=== PATIENT | female | born 1940 | race Caucasian/White ===

== ENCOUNTER 2022-10-27 21:55 | Inpatient (IN) ==
[2022-10-27] MEDS ORDERED: Patient's HEIGHT &/or WEIGHT Needed STA (22:06)
[2022-10-27] MEDS ORDERED: Patient's ALLERGY Info needs ENTERED STA (22:06)
[2022-10-27] MEDS ORDERED: OPTIRAY 320 500ml IV ONE (22:06)
[2022-10-27] MEDS ORDERED: STAT IV STA (22:21)
[2022-10-27] MEDS ORDERED: SODIUM CHLORIDE 0.9% 10ML FLUSH IV STA (22:21)
--- NOTE | 2022-10-27 22:22 | CT Scan Report ---
CT angio head w con, CT head/brain wo con, CT angio neck with con CLINICAL HISTORY: neuro deficit, acute stroke suspected TECHNIQUE: Contiguous axial CT images of the head were acquired from the base of the skull to the carlos riky without intravenous contrast administration. CT angiography of the head and neck was performed f ollowing intravenous administration of iodinated contrast. Coronal and sagittal MIPS were obtained fr om the axial data set and were submitted for review. Automated dose lowering techniques and/or adjus tment according to patient size were utilized for this examination. All measurements were calculated based on NASCET criteria. CT DOSE: 1195.82 mGy.cm Comparison: None available at the time of this dictation. FINDINGS: CT head: Areas of decreased attenuation are present in the periventricular and subcortical white cielo er bilaterally consistent with small vessel ischemic disease. Generalized cerebral atrophy with comme nsurate enlargement of the ventricles, sulci, and cisterns is also present. There is no acute intracr anial hemorrhage or evidence of acute territorial infarction. No shift of the midline structures, mas s effect, or extra-axial abnormalities are shown. Atherosclerotic calcifications are present in the intracranial segments of the internal carotid arteries. Small thyroid nodules are seen which do not require follow-up by ACR criteria. CTA Neck: A 3 vessel aortic arch is shown. There is no significant atherosclerotic plaque in the aor tic arch or the origins of the innominate, left common carotid, and left subclavian arteries. There is mild calcified atherosclerotic plaque at the bifurcation of the right common carotid artery witho ut hemodynamically significant flow stenosis. There is no dissection present. Retropharyngeal course of the right internal carotid artery is seen. The vertebral arteries are codominant. CTA Head: The anterior and posterior cerebral circulations are patent. No hemodynamically significan t stenosis, aneurysm, dissection, or arteriovenous malformation is shown. IMPRESSION: 1. No acute intracranial hemorrhage, evidence of acute territorial infarction, or other acute intrac ranial disease process. 2. No occlusion, hemodynamically significant stenosis, or dissection in the major cervical arteries. 3. No occlusion, hemodynamically significant stenosis, aneurysm, dissection, or arteriovenous malfor mation in the major intracranial arteries. Assessment of stenosis of the internal carotid arteries is based on NASCET criteria. ACT 112: Negative or not required by law. Electronically signed by: Kirk Garcia M.D. 10/27/2022 10:20 PM
--- NOTE | 2022-10-27 22:26 | Emergency Department Note ---
Impression & Plan Acute CVA (cerebrovascular accident), Right sided weakness, Facial droop, Slurred speech ED Provider Note NAME: ADRIANO MENDEZ AGE: 82 SEX: F : 1940 ARRIVES VIA: Ambulance INFORMANT: [Patient][family, EMS] ED PROVIDER(S): [Georgi Guido MD] Patient seen by me at the time of ED arrival as I met her in the hallway, [id number] CHIEF COMPLAINT: Stroke symptoms HISTORY OF PRESENT ILLNESS: The patient is an 82-year-old female presents to the ER with right-sided weaknes s and speech slurring that she believes began at around 1930, just about 2-1/2 hours ago. The patient called her family who called EMS. The patient has no complaints of pain. She cannot move the right arm or leg. She was not able to stand on her own at home. She was fine earlier in the day and had walked her dogs. She lives alone. There was no one else in the house when this occurred. The patient has not been recently ill, no cough or cold or congestion. No urinary or abdominal complaints. No previous history of stroke, no history of easy bleeding or recent surgeries. She is in excellent health for age 82, she takes no medications. REVIEW OF SYSTEMS: See HPI for pertinent positives and negatives. A total of ten systems were reviewed and were otherwise negative. PMHx/PSHx: See Below SOCIAL HISTORY: See Below. PHYSICAL EXAM: GENERAL: Patient is in no acute distress. HEENT: No acute trauma, normocephalic atraumatic, mucous membranes moist, no nasal congestion, no scleral icterus. NECK: No stridor, no adenopathy, no meningismus, trachea is midline. LUNGS: Clear to auscultation bilaterally, no wheeze, no rhonchi, breath sounds equal. HEART: Without murmurs gallops or rubs, regular rate and rhythm. ABDOMEN: Soft, nontender, bowel sounds positive, no peritonitis. EXTREMITIES: No cyanosis or edema, full range of motion of all the joints without pain or difficulty, no signs for acute trauma. NEUROLOGIC: Awake and alert. Right sided facial droop with speech slur. Essentially flaccid right arm and right leg. She cannot lift the right arm or leg off the bed. SKIN: No rash, no jaundice, no diaphoresis. DIFFERENTIAL DIAGNOSIS: Infection, dehydration, UTI, metabolic abnormality, hypo/hyperglycemia, electrolyte disturbance, anemia, hypoxia, cardiac sources, intracerebral event, toxicologic issues, stroke, TIA, as well as other pathologies. EMERGENCY DEPARTMENT COURSE/PROCEDURES: ECG: Indication was stroke. The ECG shows a normal sinus rhythm with a rate of 99. There is some ST depression seen in the lateral leads. No ST elevation, no PVCs. The QTc is 408. Baseline artifact was seen. Continuous Cardiac Monitoring: An order was placed for continuous cardiac monitoring. The monitor shows a rate of 85 with normal sinus rhythm. Critical Care Note: I have personally spent 59 minutes of critical care time in the direct management of this patient. This includes bedside care, interpretation of diagnostic studies, and testing, discussion with consultants, patient, and family members, and other required patient management activities. This 59 minutes is in excess of all separately billable procedures. MEDICAL DECISION MAKING: There is no leukocytosis or concerning anemia. There is a normal platelet count. No coagulopathy. No renal failure or significant electrolyte abnormality. No concerning liver enzyme elevation. ECG showed a normal sinus rhythm with some subtle ST depressions, no ST elevation. Cardiac enzyme testing x1 is not consistent with acute cardiac injury. Urinalysis does not show infection. COVID test returned negative. Chest film showed some chronic changes, no pneumonia or CHF. Brain CT showed no acute bleed or mass-effect. CT angio of the head and neck were performed, there was no stenosis or clot seen. On exam, the patient was essentially unable to move her right arm and leg. She had a right facial droop and some slurred speech. The patient was rapidly assessed.. She was sent immediately to CT. Pharmacy was made aware that TNK administration was extremely unlikely. I did speak with the stroke neurologist from [place]. Patient is an excellent candidate for TNK. The risks and benefits of thrombolytic use were discussed with the patient as well as the family. A handout describing the medication and the risks involved was given to the family. The patient and family were all in favor of thrombolytic administration. The medication was ordered. I did speak with the stroke neurologist, the patient was given oral atorvastatin at his request. She did pass her swallow assessment. Patient was given a saline bolus, 500 cc. She received 2 g of IV magnesium. I spoke with the covering ICU staff, I spoke with the on-call hospitalist as well as case management. I discussed everything with the family and patient. The patient has made improvement since the thrombolytic administration. She now has some movement of her right side. Past Med/Surg History Medical History No significant medical problems Social History Smoking Status: Never smoker Preferred Language: B[place] Feels Safe at Home: Yes Allergies Allergies Allergy/AdvReac Type Severity Reaction Status Date / Time adhesive tape Allergy Intermediate ITCHY RED Verified 10/27/22 22:24 RASH Home Meds Home Medications Medication Instructions Recorded Confirmed sodium chloride 5 % eye drops 1 drp ophthalmic (eye) BID PRN Eye 10/27/22 10/27/22 (Aarti 128) Irritation Results & Data (ED) Vital Signs Vital Signs - 24 hr 10/27/22 21:49 10/27/22 22:17 10/27/22 22:27 Pulse Rate 76 Pulse Rate [Apical] 86 85 Pulse Rhythm [Apical] Regular Respiratory Rate 16 26 H 19 Respiratory Effort / Characteristics Respiratory Depth Normal Normal Normal Blood Pressure 164/70 H Blood Pressure [Left Arm] 163/85 H 169/102 H Blood Pressure Mean 101 Blood Pressure Mean [Left Arm] 111 124 Pulse Oximetry 94 97 93 Oxygen Delivery Method Room Air Room Air Room Air Oxygen Flow Rate Sepsis Recent Fever Within 48 Hours No Sepsis New/Unexplained Change in Mental Status No Sepsis Action Taken by Nursing No Action Required Oxygen Flow Rate - Titration Pulse Oximetry Post Tiitration 10/27/22 22:38 10/27/22 22:38 10/27/22 22:52 Pulse Rate Pulse Rate [Apical] 92 H Pulse Rhythm [Apical] Respiratory Rate 18 Respiratory Effort / Characteristics Non-Labored Respiratory Depth Normal Blood Pressure Blood Pressure [Left Arm] 157/85 H Blood Pressure Mean Blood Pressure Mean [Left Arm] 109 Pulse Oximetry 90 88 L Oxygen Delivery Method Room Air Nasal Cannula Oxygen Flow Rate 0 Sepsis Recent Fever Within 48 Hours Sepsis New/Unexplained Change in Mental Status Sepsis Action Taken by Nursing Oxygen Flow Rate - Titration 2 Pulse Oximetry Post Tiitration 98 10/27/22 22:51 10/27/22 23:06 10/27/22 23:21 Pulse Rate Pulse Rate [Apical] 69 89 65 Pulse Rhythm [Apical] Respiratory Rate 18 18 18 Respiratory Effort / Characteristics Respiratory Depth Blood Pressure Blood Pressure [Left Arm] 164/94 H 168/86 H 167/87 H Blood Pressure Mean Blood Pressure Mean [Left Arm] 117 113 113 Pulse Oximetry 96 98 97 Oxygen Delivery Method Nasal Cannula Nasal Cannula Nasal Cannula Oxygen Flow Rate 2 2 2 Sepsis Recent Fever Within 48 Hours Sepsis New/Unexplained Change in Mental Status Sepsis Action Taken by Nursing Oxygen Flow Rate - Titration Pulse Oximetry Post Tiitration 10/27/22 23:36 10/27/22 23:51 Pulse Rate Pulse Rate [Apical] 99 H 61 Pulse Rhythm [Apical] Respiratory Rate 16 16 Respiratory Effort / Characteristics Respiratory Depth Blood Pressure Blood Pressure [Left Arm] 176/75 H 162/92 H Blood Pressure Mean Blood Pressure Mean [Left Arm] 108 115 Pulse Oximetry 97 97 Oxygen Delivery Method Nasal Cannula Nasal Cannula Oxygen Flow Rate 2 2 Sepsis Recent Fever Within 48 Hours Sepsis New/Unexplained Change in Mental Status Sepsis Action Taken by Nursing Oxygen Flow Rate - Titration Pulse Oximetry Post Tiitration Home Medications Current Medication List: was personally reviewed by me Laboratory Data Attestation: I reviewed the patient's lab results. Result diagrams: 10/27/22 22:20 10/27/22 22:20 Lab Results 10/27/22 10/27/22 10/27/22 Range/Units 22:20 22:20 22:20 WBC 9.30 (4.8-10.8) K/ul RBC 4.42 (3.93-5.22) M/uL Hgb 13.8 (12.0-16.0) g/dl Hct 41.5 (34.1-44.9) % MCV 93.9 (80.0-100.0) fL MCH 31.2 (25.0-34.0) pg MCHC 33.3 (32.0-36.0) g/dL RDW Std Deviation 46.6 H (36.4-46.3) fL RDW Coeff of Robin 13.4 (11.5-14.5) % Plt Count 270 (130-400) K/uL MPV 10.3 (9.4-12.3) fL Immature Gran % (Auto) 0.5 % Neut % (Auto) 68.4 % Lymph % (Auto) 22.3 % [place] % (Auto) 6.9 % Eos % (Auto) 1.1 % Baso % (Auto) 0.8 % Neut # (Auto) 6.37 (1.4-6.5) K/uL Lymph # (Auto) 2.07 (1.2-3.4) K/uL [place] # (Auto) 0.64 (0.24-0.82) K/uL Eos # (Auto) 0.10 (0-0.50) K/uL Baso # (Auto) 0.07 (0-0.2) K/uL Immature Gran # (Auto) 0.05 H (0.00-0.02) K/uL PT 10.3 (9.0-12.0) Seconds INR 1.0 (0.9-1.1) APTT 22.2 (21.0-31.0) Seconds PTT Ratio 0.8 Sodium 138 (136-145) mmol/L Potassium 3.7 (3.5-5.1) mmol/L Chloride 103 (98-107) mmol/L Carbon Dioxide 29 (21-32) mmol/L Anion Gap 6 (3-11) BUN 31 H (6-23) mg/dl Creatinine 0.70 (0.6-1.2) mg/dl Est Cr Clr Drug Dosing Not Reportable Est GFR ( Amer) 93.5 ml/min Est GFR (Non-Af Amer) 80.7 ml/min BUN/Creatinine Ratio 44.3 H (10-20) Glucose 127 H (70-99(Fasting)) mg/dl POC Glucose (70-99) mg/dl Calcium 8.7 (8.5-10.1) mg/dl Magnesium 2.1 (1.7-2.4) mg/dl Total Bilirubin 0.2 (0.2-1.0) mg/dl AST 16 (13-39) U/L ALT 12 (7-52) U/L Alkaline Phosphatase 69 (34-104) U/L Troponin I High Sens 4.8 (0-14) pg/ml Total Protein 6.8 (6.0-8.3) gm/dl Albumin 4.0 (3.4-5.0) gm/dl Globulin 2.8 (2.5-4.0) gm/dl Albumin/Globulin Ratio 1.4 (0.9-2) Urine Color Urine Appearance (Clear) Urine pH (4.5-7.5) Ur Specific [place] (1.000-1.030) Urine Protein (Negative) Urine Glucose (UA) (Negative) Urine Ketones (Negative) Urine Blood (Negative) Urine Nitrite (Negative) Urine Bilirubin (Negative) Urine Urobilinogen (Negative) Ur Leukocyte Esterase (Negative) SARS-CoV-2, RNA, NAAT (NEGATIVE) Blood Type Antibody Screen 10/27/22 10/27/22 10/27/22 Range/Units 22:20 22:22 22:26 WBC (4.8-10.8) K/ul RBC (3.93-5.22) M/uL Hgb (12.0-16.0) g/dl Hct (34.1-44.9) % MCV (80.0-100.0) fL MCH (25.0-34.0) pg MCHC (32.0-36.0) g/dL RDW Std Deviation (36.4-46.3) fL RDW Coeff of Robin (11.5-14.5) % Plt Count (130-400) K/uL MPV (9.4-12.3) fL Immature Gran % (Auto) % Neut % (Auto) % Lymph % (Auto) % [place] % (Auto) % Eos % (Auto) % Baso % (Auto) % Neut # (Auto) (1.4-6.5) K/uL Lymph # (Auto) (1.2-3.4) K/uL [place] # (Auto) (0.24-0.82) K/uL Eos # (Auto) (0-0.50) K/uL Baso # (Auto) (0-0.2) K/uL Immature Gran # (Auto) (0.00-0.02) K/uL PT (9.0-12.0) Seconds INR (0.9-1.1) APTT (21.0-31.0) Seconds PTT Ratio Sodium (136-145) mmol/L Potassium (3.5-5.1) mmol/L Chloride (98-107) mmol/L Carbon Dioxide (21-32) mmol/L Anion Gap (3-11) BUN (6-23) mg/dl Creatinine (0.6-1.2) mg/dl Est Cr Clr Drug Dosing Est GFR ( Amer) ml/min Est GFR (Non-Af Amer) ml/min BUN/Creatinine Ratio (10-20) Glucose (70-99(Fasting)) mg/dl POC Glucose 125 H (70-99) mg/dl Calcium (8.5-10.1) mg/dl Magnesium (1.7-2.4) mg/dl Total Bilirubin (0.2-1.0) mg/dl AST (13-39) U/L ALT (7-52) U/L Alkaline Phosphatase (34-104) U/L Troponin I High Sens (0-14) pg/ml Total Protein (6.0-8.3) gm/dl Albumin (3.4-5.0) gm/dl Globulin (2.5-4.0) gm/dl Albumin/Globulin Ratio (0.9-2) Urine Color Urine Appearance (Clear) Urine pH (4.5-7.5) Ur Specific [place] (1.000-1.030) Urine Protein (Negative) Urine Glucose (UA) (Negative) Urine Ketones (Negative) Urine Blood (Negative) Urine Nitrite (Negative) Urine Bilirubin (Negative) Urine Urobilinogen (Negative) Ur Leukocyte Esterase (Negative) SARS-CoV-2, RNA, NAAT NEGATIVE (NEGATIVE) Blood Type AB Positive Antibody Screen NEGATIVE 10/27/22 Range/Units 22:57 WBC (4.8-10.8) K/ul RBC (3.93-5.22) M/uL Hgb (12.0-16.0) g/dl Hct (34.1-44.9) % MCV (80.0-100.0) fL MCH (25.0-34.0) pg MCHC (32.0-36.0) g/dL RDW Std Deviation (36.4-46.3) fL RDW Coeff of Robin (11.5-14.5) % Plt Count (130-400) K/uL MPV (9.4-12.3) fL Immature Gran % (Auto) % Neut % (Auto) % Lymph % (Auto) % [place] % (Auto) % Eos % (Auto) % Baso % (Auto) % Neut # (Auto) (1.4-6.5) K/uL Lymph # (Auto) (1.2-3.4) K/uL [place] # (Auto) (0.24-0.82) K/uL Eos # (Auto) (0-0.50) K/uL Baso # (Auto) (0-0.2) K/uL Immature Gran # (Auto) (0.00-0.02) K/uL PT (9.0-12.0) Seconds INR (0.9-1.1) APTT (21.0-31.0) Seconds PTT Ratio Sodium (136-145) mmol/L Potassium (3.5-5.1) mmol/L Chloride (98-107) mmol/L Carbon Dioxide (21-32) mmol/L Anion Gap (3-11) BUN (6-23) mg/dl Creatinine (0.6-1.2) mg/dl Est Cr Clr Drug Dosing Est GFR ( Amer) ml/min Est GFR (Non-Af Amer) ml/min BUN/Creatinine Ratio (10-20) Glucose (70-99(Fasting)) mg/dl POC Glucose (70-99) mg/dl Calcium (8.5-10.1) mg/dl Magnesium (1.7-2.4) mg/dl Total Bilirubin (0.2-1.0) mg/dl AST (13-39) U/L ALT (7-52) U/L Alkaline Phosphatase (34-104) U/L Troponin I High Sens (0-14) pg/ml Total Protein (6.0-8.3) gm/dl Albumin (3.4-5.0) gm/dl Globulin (2.5-4.0) gm/dl Albumin/Globulin Ratio (0.9-2) Urine Color Yellow Urine Appearance Clear (Clear) Urine pH 8.0 H (4.5-7.5) Ur Specific [place] 1.035 H (1.000-1.030) Urine Protein Negative (Negative) Urine Glucose (UA) Negative (Negative) Urine Ketones Negative (Negative) Urine Blood Negative (Negative) Urine Nitrite Negative (Negative) Urine Bilirubin Negative (Negative) Urine Urobilinogen Negative (Negative) Ur Leukocyte Esterase Negative (Negative) SARS-CoV-2, RNA, NAAT (NEGATIVE) Blood Type Antibody Screen Administered Medications Sodium Chloride (Nss 1000ml) 1,000 mls @ 125 mls/hr IV .Q8H ROBERTO Stop: 11/26/22 22:44 Last Admin: 10/27/22 23:12 Dose: 125 mls/hr Documented By: HERMELINDA Magnesium Sulfate/Dextrose (Magnesium Sulfate / D5w) 1 gm in 100 mls @ 100 mls/hr IV Q1H ROBERTO Stop: 10/28/22 01:13 Last Admin: 10/27/22 23:16 Dose: 100 mls/hr Documented By: HERMELINDA Discontinued Medications Atorvastatin Calcium (Atorvastatin 40 Mg Tab) 40 mg PO NOW STA Stop: 10/27/22 22:44 Last Admin: 10/27/22 23:05 Dose: 40 mg Documented By: HERMELINDA Tenecteplase 16 mg/ Syringe 3.2 mls @ 38.4 mls/min IV NOW ONE; Protocol Stop: 10/27/22 22:32 Last Admin: 10/27/22 22:36 Dose: 38.4 mls/min Documented By: WEN Co-signed By: KRYSTIAN Sodium Chloride (Nss 1000ml) 500 mls @ 999 mls/hr IV .Q31M ONE Stop: 10/27/22 23:13 Last Infusion: 10/27/22 23:18 Dose: 0 mls/hr Documented By: Admin: 10/27/22 22:54 Dose: 999 mls/hr Documented By: HERMELINDA Ioversol (Optiray 320 500ml) 120 ml IV ONCE ONE Stop: 10/27/22 22:07 Last Admin: 10/27/22 22:06 Dose: 120 ml Documented By: FREDO Miscellaneous (Patient's Height &/Or Weight Needed) 1 each N/A NOW STA Stop: 10/27/22 22:07 Last Admin: 10/27/22 22:17 Dose: 1 each Documented By: WEN Leonardaneous (Stat Iv) 1 each N/A NOW STA Stop: 10/27/22 22:22 Last Admin: 10/27/22 22:53 Dose: Not Given Documented By: HERMELINDA Leonardaneous Information (Patient's Allergy Info Needs Entered) 1 each N/A NOW STA Stop: 10/27/22 22:07 Last Admin: 10/27/22 23:00 Dose: Not Given Documented By: HERMELINDA Sodium Chloride (Sodium Chloride 0.9% 10ml Flush) 20 ml IV NOW STA Stop: 10/27/22 22:22 Last Admin: 10/27/22 22:36 Dose: 20 ml Documented By: EMB Imaging Data Attestation: I personally reviewed and interpreted this imaging study as follows: My Impression: Chest x-ray: There are some chronic findings, I see no pneumonia or CHF. No pneumothorax. Radiologist's Impression: Head CT 10/27/22 21:49 CT angio head w con, CT head/brain wo con, CT angio neck with con CLINICAL HISTORY: neuro deficit, acute stroke suspected TECHNIQUE: Contiguous axial CT images of the head were acquired from the base of the skull to the vertex without intravenous contrast administration. CT angiogr aphy of the head and neck was performed following intravenous administration of iodinated contrast. Coronal and sagittal MIPS were obtained from the axial data set and were submitted for review. Automated dose lowering techniques and/or adjustment according to patient size were utilized for this examination. All measurements were calculated based on NASCET criteria. CT DOSE: 1195.82 mGy.cm Comparison: None available at the time of this dictation. FINDINGS: CT head: Areas of decreased attenuation are present in the periventricular and subcortical white matter bilaterally consistent with small vessel ischemic disease. Generalized cerebral atrophy with commensurate enlargement of the ve ntricles, sulci, and cisterns is also present. There is no acute intracranial hemorrhage or evidence of acute territorial infarction. No shift of the midline structures, mass effect, or extra-axial abnormalities are shown. Atherosclerotic calcifications are present in the intracranial segments of the internal carotid arteries. Small thyroid nodules are seen which do not require follow-up by ACR criteria. CTA Neck: A 3 vessel aortic arch is shown. There is no significant atherosclerotic plaque in the aortic arch or the origins of the innominate, left common carotid, and left subclavian arteries. There is mild calcified atherosclerotic plaque at the bifurcation of the right common carotid artery without hemodynamically significant flow stenosis. There is no dissection present. Retropharyngeal course of the right internal carotid artery is seen. The vertebral arteries are codominant. CTA Head: The anterior and posterior cerebral circulations are patent. No hemodynamically significant stenosis, aneurysm, dissection, or arteriovenous malformation is shown. IMPRESSION: 1. No acute intracranial hemorrhage, evidence of acute territorial infarction, or other acute intracranial disease process. 2. No occlusion, hemodynamically significant stenosis, or dissection in the major cervical arteries. 3. No occlusion, hemodynamically significant stenosis, aneurysm, dissection, or arteriovenous malformation in the major intracranial arteries. Assessment of stenosis of the internal carotid arteries is based on NASCET sheryl wang. ACT 112: Negative or not required by law. Electronically signed by: Kirk Garcia M.D. 10/27/2022 10:20 PM Head CTA 10/27/22 21:49 CT angio head w con, CT head/brain wo con, CT angio neck with con CLINICAL HISTORY: neuro deficit, acute stroke suspected TECHNIQUE: Contiguous axial CT images of the head were acquired from the base of the skull to the vertex without intravenous contrast administration. CT angiography of the head and neck was performed following intravenous admin istration of iodinated contrast. Coronal and sagittal MIPS were obtained from the axial data set and were submitted for review. Automated dose lowering techniques and/or adjustment according to patient size were utilized for this examination. All measurements were calculated based on NASCET criteria. CT DOSE: 1195.82 mGy.cm Comparison: None available at the time of this dictation. FINDINGS: CT head: Areas of decreased attenuation are present in the periventricular and subcortical white matter bilaterally consistent with small vessel ischemic disease. Generalized cerebral atrophy with commensurate enlargement of the ventricles, sulci, and cisterns is also present. There is no acute intracranial hemorrhage or evidence of acute territorial infarction. No shift of the midline structures, mass effect, or extra-axial abnormalities are shown. Atherosclerotic calcifications are present in the intracranial segments of the internal carotid arteries. Small thyroid nodules are seen which do not require follow-up by ACR criteria. CTA Neck: A 3 vessel aortic arch is shown. There is no significant atherosclerotic plaque in the aortic arch or the origins of the innominate, left common carotid, and left subclavian arteries. There is mild calcified atherosclerotic plaque at the bifurcation of the right common carotid artery without hemodynamically significant flow stenosis. There is no dissection present. Retropharyngeal course of the right internal carotid artery is seen. The vertebral arteries are codominant. CTA Head: The anterior and posterior cerebral circulations are patent. No hemodynamically significant stenosis, aneurysm, dissection, or arteriovenous malformation is shown. IMPRESSION: 1. No acute intracranial hemorrhage, evidence of acute territorial infarction, or other acute intracranial disease process. 2. No occlusion, hemodynamically significant stenosis, or dissection in the major cervical arteries. 3. No occlusion, hemodynamically significant stenosis, aneurysm, dissection, or arteriovenous malformation in the major intracranial arteries. Assessment of stenosis of the internal carotid arteries is based on NASCET criteria. ACT 112: Negative or not required by law. Electronically signed by: Kirk Garcia M.D. 10/27/2022 10:20 PM Neck CTA 10/27/22 21:49 CT angio head w con, CT head/brain wo con, CT angio neck with con CLINICAL HISTORY: neuro deficit, acute stroke suspected TECHNIQUE: Contiguous axial CT images of the head were acquired from the base of the skull to the vertex without intravenous contrast administration. CT angiography of the head and neck was performed following intravenous administration of iodinated contrast. Coronal and sagittal MIPS were obtained from the axial data set and were submitted for review. Automated dose lowering techniques and/or adjustment according to patient size were utilized for this examination. All measurements were calculated based on NASCET criteria. CT DOSE: 1195.82 mGy.cm Comparison: None available at the time of this dictation. FINDINGS: CT head: Areas of decreased attenuation are present in the periventricular and subcortical white matter bilaterally consistent with small vessel ischemic disease. Generalized cerebral atrophy with commensurate enlargement of the ventricles, sulci, and cisterns is also present. There is no acute intracranial hemorrhage or evidence of acute territorial infarction. No shift of the midline structures, mass effect, or extra-axial abnormalities are shown. Atheroscle rotic calcifications are present in the intracranial segments of the internal carotid arteries. Small thyroid nodules are seen which do not require follow-up by ACR criteria. CTA Neck: A 3 vessel aortic arch is shown. There is no significant ather osclerotic plaque in the aortic arch or the origins of the innominate, left common carotid, and left subclavian arteries. There is mild calcified atherosclerotic plaque at the bifurcation of the right common carotid artery without hemodynamically significant flow stenosis. There is no dissection p resent. Retropharyngeal course of the right internal carotid artery is seen. The vertebral arteries are codominant. CTA Head: The anterior and posterior cerebral circulations are patent. No hemodynamically significant stenosis, aneurysm, dissection, or arteriovenous malformation is shown. IMPRESSION: 1. No acute intracranial hemorrhage, evidence of acute territorial infarction, or other acute intracranial disease process. 2. No occlusion, hemodynamically significant stenosis, or dissection in the major cervical arteries. 3. No occlusion, hemodynamically significant stenosis, aneurysm, dissection, or arteriovenous malformation in the major intracranial arteries. Assessment of stenosis of the internal carotid arteries is based on NASCET criteria. ACT 112: Negative or not required by law. Electronically signed by: Kirk Garcia M.D. 10/27/2022 10:20 PM Discharge Plan Visit Data Chief Complaint: Stroke/CVA Symptoms Stated Complaint: Stroke Alert ED Provider: Georgi Guido Discharge Problem: Acute CVA (cerebrovascular accident), Right sided weakness, Facial droop, Slurred speech Patient Disposition: Admitted As Inpatient Condition: Serious Discharge Instructions Interventions: ED Discharge Assessment Last Done: 10/28/22 00:21
[2022-10-27] MEDS ORDERED: No Aspirin within 24hrs of THROMBOLYTIC-Stroke PO SCH (22:30)
[2022-10-27] MEDS ORDERED: TENECTEPLASE 16 MG in SYRINGE 0 ML IV ONE (22:31)
[2022-10-27 22:33] LABS: Basophils # (auto) 0.07 K/uL (0-0.2); Basophils % (auto) 0.8 %; Eosinophils % (auto) 1.1 %; Hematocrit (blood only) 41.5 % (34.1-44.9); Hemoglobin 13.8 g/dl (12.0-16.0); Immature Granulocytes # (auto) 0.05 K/uL (0.00-0.02); Immature Granulocytes % (auto) 0.5 %; Lymphocytes # (auto) 2.07 K/uL (1.2-3.4); Lymphocytes % (auto) 22.3 %; Mean Corpuscular Hemoglobin 31.2 pg (25.0-34.0); Mean Corpuscular Hgb Conc 33.3 g/dL (32.0-36.0); Mean Corpuscular Volume 93.9 fL (80.0-100.0); Mean Platelet Volume 10.3 fL (9.4-12.3); Monocytes # (auto) 0.64 K/uL (0.24-0.82); Monocytes % (auto) 6.9 %; Neutrophils # (auto) 6.37 K/uL (1.4-6.5); Neutrophils % (auto) 68.4 %; Platelet Count 270 K/uL (130-400); RDW Coefficient of Variation 13.4 % (11.5-14.5); RDW Standard Deviation 46.6 fL (36.4-46.3); Red Blood Count 4.42 M/uL (3.93-5.22)
[2022-10-27] MEDS ORDERED: ATORVASTATIN 40 MG TAB PO STA (22:43)
[2022-10-27] MEDS ORDERED: SODIUM CHLORIDE 0.9% 1000ML 500 ML IV ONE (22:43)
[2022-10-27] MEDS ORDERED: SODIUM CHLORIDE 0.9% 1000ML 1,000 ML IV SCH (22:45)
[2022-10-27 22:52] LABS: Alanine Aminotransferase 12 U/L (7-52); Albumin Globulin Ratio 1.4 (0.9-2); Alkaline Phosphatase 69 U/L (34-104); Anion Gap 6 (3-11); Aspartate Aminotransferase 16 U/L (13-39); BUN Creatinine Ratio 44.3 (10-20); Bilirubin,Total 0.2 mg/dl (0.2-1.0); Blood Urea Nitrogen 31 mg/dl (6-23); Calcium 8.7 mg/dl (8.5-10.1); Carbon Dioxide 29 mmol/L (21-32); Chloride 103 mmol/L (98-107); Est GFR (African American) 93.5 ml/min; Est GFR (Non-African American) 80.7 ml/min; Globulin 2.8 gm/dl (2.5-4.0); Glucose 127 mg/dl (70-99(Fasting)); Magnesium 2.1 mg/dl (1.7-2.4); Potassium 3.7 mmol/L (3.5-5.1); Sodium 138 mmol/L (136-145); Total Protein 6.8 gm/dl (6.0-8.3)
[2022-10-27 22:54] LABS: Partial Thromboplastin Ratio 0.8; Partial Thromboplastin Time 22.2 Seconds (21.0-31.0); Prothrombin Time 10.3 Seconds (9.0-12.0)
[2022-10-27 22:57] LABS: Troponin I High Sensitivity 4.8 pg/ml (0-14)
[2022-10-27] MEDS: MAGNESIUM SULFATE / D5W 1 GM/100 ML BAG IV SCH (23:16)
[2022-10-27 23:24] LABS: Appearance Urine Clear (Clear); Bilirubin Urine Negative (Negative); Blood Urine Negative (Negative); Color Urine Yellow; Glucose Urine UA Negative (Negative); Ketones Urine Negative (Negative); Leukocyte Esterase Urine Negative (Negative); Nitrite Urine Negative (Negative); Protein Urine Negative (Negative); Specific Gravity Urine 1.035 (1.000-1.030); Urobilinogen Urine Negative (Negative)
[2022-10-27] MEDS ORDERED: BACLOFEN 10 MG TAB PO STA (23:49)
--- NOTE | 2022-10-28 00:41 | Critical Care Consultation ---
Date of Consultation October 28, 2022 Assessment & Plan (1) Acute CVA (cerebrovascular accident): (2) Right sided weakness: (3) Facial droop: (4) Slurred speech: (5) Elevated serum glucose: Plan Reason Critically Ill: 82 YOF presents with right sided weakness/paralysis, right facial droop, dysarthria- stroke alert en route and deemed TNKase candidate. Received TNKase at 2130. Neuro - CVA s/p TNKase administration - NIHSS 8-11 - Recommendations from [facility] telestroke following administration of TNKase- if she worsens or continues with waxing and waning of symptoms- obtain noncon head CT scan, re-consult for possible early initiation of ASA/Plavix - CTA of head and neck without carotid stenosis or ICAD - Atorvastatin 40mg administered in EMD - BP goals SBP <180/<105 post infusion - labetalol/hydralazine PRN- if frequent dosing or refractory initiate Nicardipine infusion - CT non con 24 hours post TNKase or for any changes to rule out bleed - MRI pending - ECHO in am with bubble study - Bed side swallow eval passed - PT/OT consultation - Follow telemetry for arrhythmia- if no arrhythmia over 24 hour telemetry consider extending monitoring - STOP bang score- 1 - Nuerology consulted by primary service Cardiac - Elevated blood pressure without diagnosis of HTN - Has been <180 during EMD visit- trend and follow- allow for permissive HTN in the setting of acute CVA - Goals as above while in ICU - Lipid panel 24 hour post TNKase Respiratory - No acute needs GI - No acute needs RENAL/LYTES - No acute needs - Follow renal function - avoid nephrotoxic medications - electroltyes per protocol 24 hour post TNKase - indwelling austin in place - Follow urine output - austin removal likely able after 24 hours TNKase administration ENDO - Elevated serum glucose without diagnosis of DM - NO history of DM and on no medications at home - goal < 180mg/dl - HGBA1c with lab draws 24 hour post TNKase HEME - NO acute issues - TYpe and screened prior to TNKase administration - Supportive resuscitation if bleeding occurs ID - NO acute needs LINES/IV ACCESS - PIV, Austin catheter Continue use of these lines DVT PROPHYLAXIS - SCDS, Chemoprophylaxis contraindicated in the setting of TNKase administration DISPO: ICU 24 hours post TNKase I have personally spent 40 minutes of critical care time in the direct management of this patient. This is a life/limb threatening event. This includes time spent evaluating patient, direct bedside care, chart review, placing orders, interpretation of diagnostic studies, discussion with consultants, patient, and family members, as well as other required patient management activities. This time is exclusive of all separately billable procedures, and separate from and in addition to any other critical care service time. Thank you for allowing us to participate in the care of this patient. Please refer to my attending physician's documentation for any further recommendations. History of Present Illness Reason for Consultation: Stroke like symptoms s/p administraiton of TNKase Requesting Physician: Yo Vallecillo Attending Physician: Rayray Palm MD History of Present Illness 82 YOF with no documented medical history and on no medications at home. Patient lives independently at baseline. She was out walking her dogs this afternoon and after returning home she noticed onset of right arm and leg weakness to the point she could not use them. Was able to get to the phone and call family members, who noted slurred speech. Patient reports symptom onset was around 1930. EMS was dispatched and patient arrived to [facility] as a stroke alert. On arrival to the EMD the patient had CTA of the head and neck performed as well as CT of the head. Telestroke was consulted through [facility]. Presenting NIHSS was reported as 8. Glucose was normal, sodium was normal, UA was negative. She was deemed a TNKase candidate and received this at 2230. Following administration of TNKAse patient has had some waxing and waning of her neurological exam as well as lower extremity spasms to the right leg. She was given Atorvastatin 40mg in the EMD. For her spasms, she was given Magnesium and Baclofen. Patient will be observed in ICU for 24 hours following TNKase administration for frequent neurological exams, monitoring for bleeding, and arrhythmias with telemetry. COVID on admission is: Negative, reports she has never had COVID. Vaccinated x1 with Atif and Atif last year. Allergies Allergy/AdvReac Type Severity Reaction Status Date / Time adhesive tape Allergy Intermediate ITCHY RED Verified 10/27/22 22:24 RASH Home Medications Medication Instructions Recorded Confirmed Type sodium chloride 5 % eye drops 1 drp ophthalmic (eye) BID PRN Eye 10/27/22 10/27/22 History (Aarti 128) Irritation Patient History Medical History No significant medical problems Social History Smoking Status: Never smoker Second Hand Exposure: No; Do You Dip or Chew Tobacco: No; Tobacco Cessation Education Requested by Patient: No Hx Alcohol Use: No Hx Substance Use: No Preferred Language: Danish Communication Ability: Effective Auto Appraiser Required: No Beliefs That Will Affect Care: None Current Living Situation: Alone Feels Safe at Home: Yes Safety Concerns: Feels Safe At This Time Assistive Devices: Glasses Assistive Devices Comment: Not here Review of Systems Review of Systems: REVIEW OF SYSTEMS: Constitutional: No fever, sweats or chills Eyes: No diplopia, no worsening or blurred vision ENT: normal hearing, no trouble swallowing Respiratory: No cough, sputum, dyspnea at rest or on exertion Cardiovascular: No chest pain, tightness or palpitations Abdomen: No pain, nausea, vomiting, diarrhea or constipation Musculoskeletal: (+) spasms to right lower leg, No joint pain, calf pain, swel ling Neurologic: (+) weakness, numbness/tingling, balance problems, dysarthria Psychiatric: No anxiety or depression Skin: No rash or itch Physical Exam Constitutional: PHYSICAL EXAM: General: awake, alert, no apparent distress Head: Normocephalic, atraumatic Neuro: AAO x 3, PERRLA, EOMI, speech slurred, facial droop to the right, right arm without movement and immediate drop to bed, sensation less on right arm, right leg with dorsiflexion of foot, feels sensation on right as being on left foot. Left side without deficits. NIHSS- 11- although ataxia is not out of proportion to weakness. Chest: equal rise and fall of the chest, no accessory muscle use, no heaves or thrills, Clear to auscultation, on room air, Cardiac: Regular rate and rhythm, telemetry reviewed- NSR, skin warm dry, cap refill <3 seconds, peripheral pulses +2 no JVD, no murmur, no JVD, no edema GI: NABS x 4 quadrants, soft, nontender to palpation, no rebound, guarding or tenderness : Austin to gravity draining clear dilute urine Extremities: Normal inspection, no peripheral edema or erythema, calfs nontender to palpation Psych: Normal mood and affect Skin: no rash or erythema Results & Data Results & Data ([facility]) Vital Signs (Past 12 Hours) Vital Signs Pulse Pulse Resp BP BP Pulse Ox O2 Del Method 10/28/22 00:21 60 16 177/99 H 97 Nasal Cannula 10/28/22 00:06 80 18 177/93 H 96 Nasal Cannula 10/27/22 23:51 61 16 162/92 H 97 Nasal Cannula 10/27/22 23:36 99 H 16 176/75 H 97 Nasal Cannula 10/27/22 23:21 65 18 167/87 H 97 Nasal Cannula 10/27/22 23:06 89 18 168/86 H 98 Nasal Cannula 10/27/22 22:51 69 18 164/94 H 96 Nasal Cannula 10/27/22 22:52 88 L Nasal Cannula 10/27/22 22:38 92 H 18 157/85 H 90 Room Air 10/27/22 22:27 85 19 169/102 H 93 Room Air 10/27/22 22:17 86 26 H 163/85 H 97 Room Air 10/27/22 21:49 76 16 164/70 H 94 Room Air O2 Flow Rate 10/28/22 00:21 2 10/28/22 00:06 2 10/27/22 23:51 2 10/27/22 23:36 2 10/27/22 23:21 2 10/27/22 23:06 2 10/27/22 22:51 2 10/27/22 22:52 0 10/27/22 22:38 10/27/22 22:27 10/27/22 22:17 10/27/22 21:49 Laboratory Results Abnormal lab results 10/27/22 10/27/22 10/27/22 Range/Units 22:20 22:20 22:22 RDW Std Deviation 46.6 H (36.4-46.3) fL Immature Gran # (Auto) 0.05 H (0.00-0.02) K/uL BUN 31 H (6-23) mg/dl BUN/Creatinine Ratio 44.3 H (10-20) Glucose 127 H (70-99(Fasting)) mg/dl POC Glucose 125 H (70-99) mg/dl Urine pH (4.5-7.5) Ur Specific Arthur (1.000-1.030) 10/27/22 Range/Units 22:57 RDW Std Deviation (36.4-46.3) fL Immature Gran # (Auto) (0.00-0.02) K/uL BUN (6-23) mg/dl BUN/Creatinine Ratio (10-20) Glucose (70-99(Fasting)) mg/dl POC Glucose (70-99) mg/dl Urine pH 8.0 H (4.5-7.5) Ur Specific Arthur 1.035 H (1.000-1.030) Diagnostic Findings Head CT 10/27/22 21:49 CT angio head w con, CT head/brain wo con, CT angio neck with con CLINICAL HISTORY: neuro deficit, acute stroke suspected TECHNIQUE: Contiguous axial CT images of the head were acquired from the base of the skull to the vertex without intravenous contrast administration. CT angiography of the head and neck was performed following intravenous administration of iodinated contrast. Coronal and sagittal MIPS were obtained from the axial data set and were submitted for review. Automated dose lowering techniques and/or adjustment according to patient size were utilized for this examination. All measurements were calculated based on NASCET criteria. CT DOSE: 1195.82 mGy.cm Comparison: None available at the time of this dictation. FINDINGS: CT head: Areas of decreased attenuation are present in the periventricular and subcortical white matter bilaterally consistent with small vessel ischemic disease. Generalized cerebral atrophy with commensurate enlargement of the ventricles, sulci, and cisterns is also present. There is no acute intracranial hemorrhage or evidence of acute territorial infarction. No shift of the midline structures, mass effect, or extra-axial abnormalities are shown. Atherosclerotic calcifications are present in the intracranial segments of the internal carotid arteries. Small thyroid nodules are seen which do not require follow-up by ACR criteria. CTA Neck: A 3 vessel aortic arch is shown. There is no significant atherosclerotic plaque in the aortic arch or the origins of the innominate, left common carotid, and left subclavian arteries. There is mild calcified atherosclerotic plaque at the bifurcation of the right common carotid artery without hemodynamically significant flow stenosis. There is no dissection present. Retropharyngeal course of the right internal carotid artery is seen. The vertebral arteries are codominant. CTA Head: The anterior and posterior cerebral circulations are patent. No hemodynamically significant stenosis, aneurysm, dissection, or arteriovenous malformation is shown. IMPRESSION: 1. No acute intracranial hemorrhage, evidence of acute territorial infarction, or other acute intracranial disease process. 2. No occlusion, hemodynamically significant stenosis, or dissection in the major cervical arteries. 3. No occlusion, hemodynamically significant stenosis, aneurysm, dissection, or arteriovenous malformation in the major intracranial arteries. Assessment of stenosis of the internal carotid arteries is based on NASCET criteria. ACT 112: Negative or not required by law. Electronically signed by: Kirk Garcia M.D. 10/27/2022 10:20 PM Head CTA 10/27/22 21:49 CT angio head w con, CT head/brain wo con, CT angio neck with con CLINICAL HISTORY: neuro deficit, acute stroke suspected TECHNIQUE: Contiguous axial CT images of the head were acquired from the base of the skull to the vertex without intravenous contrast administration. CT angiography of the head and neck was performed following intravenous administration of iodinated contrast. Coronal and sagittal MIPS were obtained from the axial data set and were submitted for review. Automated dose lowering techniques and/or adjustment according to patient size were utilized for this examination. All measurements were calculated based on NASCET criteria. CT DOSE: 1195.82 mGy.cm Comparison: None available at the time of this dictation. FINDINGS: CT head: Areas of decreased attenuation are present in the periventricular and subcortical white matter bilaterally consistent with small vessel ischemic disease. Generalized cerebral atrophy with commensurate enlargement of the ventricles, sulci, and cisterns is also present. There is no acute intracranial hemorrhage or evidence of acute territorial infarction. No shift of the midline structures, mass effect, or extra-axial abnormalities are shown. Atherosclerotic calcifications are present in the intracranial segments of the internal carotid arteries. Small thyroid nodules are seen which do not require follow-up by ACR criteria. CTA Neck: A 3 vessel aortic arch is shown. There is no significant atherosclerotic plaque in the aortic arch or the origins of the innominate, left common carotid, and left subclavian arteries. There is mild calcified atherosclerotic plaque at the bifurcation of the right common carotid artery without hemodynamically significant flow stenosis. There is no dissection present. Retropharyngeal course of the right internal carotid artery is seen. The vertebral arteries are codominant. CTA Head: The anterior and posterior cerebral circulations are patent. No hemodynamically significant stenosis, aneurysm, dissection, or arteriovenous malformation is shown. IMPRESSION: 1. No acute intracranial hemorrhage, evidence of acute territorial infarction, or other acute intracranial disease process. 2. No occlusion, hemodynamically significant stenosis, or dissection in the major cervical arteries. 3. No occlusion, hemodynamically significant stenosis, aneurysm, dissection, or arteriovenous malformation in the major intracranial arteries. Assessment of stenosis of the internal carotid arteries is based on NASCET criteria. ACT 112: Negative or not required by law. Electronically signed by: Kirk Garcia M.D. 10/27/2022 10:20 PM Neck CTA 10/27/22 21:49 CT angio head w con, CT head/brain wo con, CT angio neck with con CLINICAL HISTORY: neuro deficit, acute stroke suspected TECHNIQUE: Contiguous axial CT images of the head were acquired from the base of the skull to the vertex without intravenous contrast administration. CT angiography of the head and neck was performed following intravenous administration of iodinated contrast. Coronal and sagittal MIPS were obtained from the axial data set and were submitted for review. Automated dose lowering techniques and/or adjustment according to patient size were utilized for this examination. All measurements were calculated based on NASCET criteria. CT DOSE: 1195.82 mGy.cm Comparison: None available at the time of this dictation. FINDINGS: CT head: Areas of decreased attenuation are present in the periventricular and subcortical white matter bilaterally consistent with small vessel ischemic disease. Generalized cerebral atrophy with commensurate enlargement of the ventricles, sulci, and cisterns is also present. There is no acute intracranial hemorrhage or evidence of acute territorial infarction. No shift of the midline structures, mass effect, or extra-axial abnormalities are shown. Atherosclerotic calcifications are present in the intracranial segments of the internal carotid arteries. Small thyroid nodules are seen which do not require follow-up by ACR criteria. CTA Neck: A 3 vessel aortic arch is shown. There is no significant atherosclerotic plaque in the aortic arch or the origins of the innominate, left common carotid, and left subclavian arteries. There is mild calcified atherosclerotic plaque at the bifurcation of the right common carotid artery without hemodynamically significant flow stenosis. There is no dissection present. Retropharyngeal course of the right internal carotid artery is seen. The vertebral arteries are codominant. CTA Head: The anterior and posterior cerebral circulations are patent. No hemodynamically significant stenosis, aneurysm, dissection, or arteriovenous malformation is shown. IMPRESSION: 1. No acute intracranial hemorrhage, evidence of acute territorial infarction, or other acute intracranial disease process. 2. No occlusion, hemodynamically significant stenosis, or dissection in the major cervical arteries. 3. No occlusion, hemodynamically significant stenosis, aneurysm, dissection, or arteriovenous malformation in the major intracranial arteries. Assessment of stenosis of the internal carotid arteries is based on NASCET criteria. ACT 112: Negative or not required by law. Electronically signed by: Kirk Garcia M.D. 10/27/2022 10:20 PM Medications Administered Home Medications sodium chloride 5 % eye drops (Aarti 128) 1 drp ophthalmic (eye) BID PRN Eye Irritation 10/27/22 [History Confirmed 10/27/22] Active Medications Aspirin (No Aspirin Within 24hrs Of Thrombolytic-Stroke) 1 each PO UD ROBERTO Stop: 10/28/22 22:29 Magnesium Sulfate/Dextrose (Magnesium Sulfate / D5w) 1 gm in 100 mls @ 100 mls/hr IV Q1H ROBERTO Stop: 10/28/22 01:13 Last Admin: 10/27/22 23:16 Dose: 100 mls/hr Sodium Chloride (Nss 1000ml) 1,000 mls @ 125 mls/hr IV .Q8H ROBERTO Stop: 11/27/22 00:43 Miscellaneous (Icu Protocol For Hyperglycemia) 1 each N/A ACHS ROBERTO Stop: 10/30/22 07:29 Miscellaneous Information (Pharmacist Discharge Med Rec Consult) 1 each N/A UD PRN PRN Reason: Consult Stop: 11/27/22 00:43 ECG Additional Comments: Normal sinus rhythm Possible Left atrial enlargement Nonspecific ST and T wave abnormality Abnormal ECG When compared with ECG of 25-MAR-2008 13:46, Vent. rate has increased BY [address] now depressed in Anterior leads T wave inversion now evident in Inferior leads T wave inversion now evident in Anterior leads Coding Level of Care Code Critical Care 1st 30-74 mins Diagnoses Acute CVA (cerebrovascular accident) I63.9 Right sided weakness R53.1 Facial droop R29.810 Slurred speech R47.81 Elevated serum glucose R73.9
[2022-10-28] MEDS ORDERED: PHARMACIST DISCHARGE MED REC CONSULT PRN (00:44)
[2022-10-28] MEDS ORDERED: LABETALOL HCL IV 5 MG/ML 20ML IV PRN (01:16)
--- NOTE | 2022-10-28 01:30 | History and Physical Report ---
DATE OF ADMISSION: 10/27/2022. CHIEF COMPLAINT: Acute CVA. HISTORY OF PRESENT ILLNESS: This is an 82-year-old female with past medical history significant for hyperlipidemia, not on any medications, history of osteoporosis , vitamin D deficiency, presents with acute CVA. The patient was sitting on the couch. Around 7;30pm she does not feel anything on the right side and she fell down and she could not move. Her speech is somewhat compromised, but she was able to call her [id number]. Daughter in law called EMS and brought in here. Prior to that, she seems to be doing okay. She was stroke alert and she was 2-1/2 hours since the stroke and she was given TNK. Currently, resting comfortably, hemodynamically stable, able to give her history. Speech is somewhat pressured, but speaking okay, could not move her right upper extremity, minimal movement of the right lower extremity, but she has a lot of spasms in the right leg and asking for help with her spasms.. Denies any headache. No blurred vision or double visions, no runny nose, no cough, no fevers. She passed swallow evaluation in the ER. Denies any chest pain, no shortness of breath, no nausea, no abdominal pain. Normal bowel and bladder movements. Denies any blood in stools or black stools. No swelling in the legs, no rash. ALLERGIES: ADHESIVE TAPES. PAST MEDICAL HISTORY: As mentioned above. PAST SURGICAL HISTORY: Bunion correction, colonoscopy with biopsy, removal of thyroid lesion, which is benign, cataracts surgery. MEDICATIONS: Sodium chloride ophthalmic drops b.i.d. p.r.n. for irritation. FAMILY HISTORY: Significant for father has heart disorder, of stroke at age of 82. SOCIAL HISTORY: . No smoking, no alcohol, no drug use. REVIEW OF SYSTEMS: As per HPI. Rest of the review of systems is negative. PHYSICAL EXAMINATION: GENERAL: The patient is alert and oriented, seems to have mild facial droop on the right side. VITAL SIGNS: Temperature afebrile, pulse 61, respiratory rate 16, blood pressure 162/92, oxygen 97% on 2 liters. HEENT: Pupils equal, round and reactive to light. Mild right facial droop. Oral mucosa moist. Tongue is midline. NECK: No JVD or neck masses seen. CARDIOVASCULAR: S1 and S2 heard. Regular rate and rhythm. No murmur, no gallop. RESPIRATORY SYSTEM: Normal AP diameter. No accessory muscle use. No wheezing or crackles. ABDOMEN: Soft, bowel sounds present, nontender, no distention. CENTRAL NERVOUS SYSTEM: Alert and oriented x3. Mild right facial droop. Speech is pressured, cannot move her right upper extremity, minimal movement of left lower extremity. No f sensation in the right side, power 5/5 in left extremities, sensation intact in left extremities. EXTREMITIES: No edema, no erythema. LABORATORY DATA: WBC 10.3, hemoglobin 13.8, hematocrit 41.5, platelets 270s. PT 10.3, INR 1, APTT 22.2. Sodium 138, potassium 3.7, chloride 103, bicarb 29, BUN 31, creatinine 0.7, serum glucose 127, calcium 8.7, magnesium 2.1, total bilirubin 0.2, AST 16, ALT 12, alkaline phosphatase 69. Troponin I high sensitivity 4.8. Urinalysis negative. SARS-CoV-2 rapid test negative. IMAGING DATA: CTA head and neck and ct head w/o contrast:, no acute intracranial hemorrhage, evidence of acute territorial infarction or other acute intracranial disease process. No occlusion, hemodynamically significant stenosis or dissection of the major cerebral arteries, no occlusion, hemodynamically significant stenosis, aneurysm, dissection, arteriovenous malformation of major intracranial arteries. Chest x-ray, no acute findings. EKG: Normal sinus rhythm at a rate of 99, nonspecific ST abnormalities, ST depressions in leads V4, V5. ASSESSMENT AND PLAN: An 82-year-old female who presents with acute cerebrovascular accident. 1. Acute cerebrovascular accident with right-sided weakness, status post tnk She has minimal movement of the right lower extremity. Lack of sensation right side, mild right facial droop, passed swallow evaluation in the ER, alert and oriented. Repeat CT after 24 hours post-TNK. Closely monitor in the ICU. Permissive hypertension. We will do MRI scan, echocardiogram, speech evaluation, PT, OT evaluation. We will keep her n.p.o., except meds until after speech evaluation. IV fluids. Started statin in the ER. Stroke neurologist, Dr. Gardner told to call him back if the patient developed significant symptoms again as plan to start aspirin and Plavix before 24 hours if the patient's symptoms gets worse . 2. Hyperlipidemia, not on any medication. Follow lipid profile. Starting on statin. 3. Deep venous thrombosis prophylaxis: SCDs. DISPOSITION: Closely monitor in the ICU. Level 1 full code. PT, OT prior to discharge. Social service to help with discharge planning, may need rehab. Job ID: [id number] [email or web address]
[2022-10-28] MEDS: SODIUM CHLORIDE 0.9% 1000ML 1,000 ML IV SCH ×3 (02:11→18:38)
[2022-10-28] MEDS: MAGNESIUM SULFATE / D5W 1 GM/100 ML BAG IV SCH (02:11)
[2022-10-28] MEDS: ICU Protocol for HYPERglycemia SCH ×4 (07:39→21:00)
--- NOTE | 2022-10-28 08:14 | CT Scan Report ---
HEAD CT NONCONTRAST CT DOSE: 614.27 mGy.cm HISTORY: Neurological deficits. Worsening NIHSS TECHNIQUE: Multiaxial CT images of the head were performed without the use of intravenous contrast. A utomated exposure control was utilized for this study. A dose lowering technique was utilized adheri ng to the principles of ALARA. Comparison: Head CT 10/27/2022. Findings: The paranasal sinuses and mastoid air cells are clear. The calvarium and skull base are int act. There is no mass, hematoma, midline shift, acute infarct. White matter hypodensity is nonspecifi c but suggestive of microvascular ischemic change. The ventricles and sulci demonstrate mild age-rela franklin involutional changes. Impression: No acute intracranial abnormality. ACT 112: Negative or not required by law. Electronically signed by: Darron Garibay M.D. 10/28/2022 8:13 AM
--- NOTE | 2022-10-28 08:44 | XRay Report ---
XR chest 1V portable HISTORY: neuro deficit, acute stroke suspected COMPARISON: Chest 03/25/2008.. FINDINGS: No pneumothorax. No pleural effusions. The cardiac silhouette is mildly enlarged. There is mild diffuse interstitial thickening. No focal lung consolidations identified. Lobular right infrahil ar density is noted. IMPRESSION: 1. Mild cardiomegaly with mild diffuse interstitial thickening. This could be chronic or represent mi ld congestive change. 2. A right infrahilar lobular density. This is new from the prior study and could represent an infrah ilar lesion. Follow-up nonemergent chest CT recommended for further evaluation. 3. This report was called/faxed to the emergency department following dictation. ACT 112: Negative or not required by law. Electronically signed by: Darron Garibay M.D. 10/28/2022 8:43 AM
--- NOTE | 2022-10-28 09:38 | Critical Care Progress Note ---
Date of Service October 28, 2022 Assessment & Plan (1) Acute CVA (cerebrovascular accident): (2) Right sided weakness: (3) Facial droop: (4) Slurred speech: (5) Elevated serum glucose: Plan Reason Critically Ill: 82 YOF presents with right sided weakness/paralysis, right facial droop, dysarthria- stroke alert en route and deemed TNKase candidate. Received TNKase at 2130. Neuro - CVA s/p TNKase administration - NIHSS 8-11 - [place] [facility] [place] administration of TNKase- if she worsens or continues with waxing and waning of symptoms- obtain noncon head CT scan - CTA of head and neck without carotid stenosis or ICAD - Atorvastatin 40mg administered in EMD - BP goals <180/105 post infusion - labetalol/hydralazine PRN - Bed side swallow eval passed - PT/OT consultation - Follow telemetry for arrhythmia- if no arrhythmia over 24 hour telemetry consider extending monitoring - STOP bang score- 1 -Neurology consulted by primary service Follow-up 2D echo and MRI Cardiac - Elevated blood pressure without diagnosis of HTN - Has been <180 during EMD visit- trend and follow- allow for permissive HTN in the setting of acute CVA - Goals as above while in ICU - Lipid panel 24 hour post TNKase Respiratory - No acute needs GI - No acute needs RENAL/LYTES - Monitor BUNs/creatinine Avoid nephrotoxic medication - indwelling austin in place ENDO - Elevated serum glucose without diagnosis of DM - No history of DM and on no medications at home - goal < 180mg/dl - HGBA1c with lab draws 24 hour post TNKase HEME - NO acute issues - Type and screened prior to TNKase administration - Supportive resuscitation if bleeding occurs ID - NO acute needs --Prophylaxis VTE: IPC GI: None Lines: Peripheral Diet: N.p.o. Plan: In/out: +920, urine output [address] head given the worsening of the NIHSS scale in the morning was negative for any changes. Patient is scheduled to have an MRI done. Continue with aspiration precautions. Continue to keep blood pressure less than 180/105. Follow-up 2D echo. I have personally spent 33 minutes of critical care time in the direct management of this patient. This is a life/limb threatening event. This includes time spent evaluating patient, direct bedside care, chart review, placing orders, interpretation of diagnostic studies, discussion with consultants, patient, and family members, as well as other required patient management activities. This time is exclusive of all separately billable procedures, and separate from and in addition to any other critical care service time. Thank you for allowing us to participate in the care of this patient. Please refer to my attending physician's documentation for any further recommendations. Admission and Anticipated Discharge Date Admission Date: October 27, 2022 Subjective Patient seen and examined at bedside. No acute distress Early in the morning patient's NIHSS scale increased from baseline She was having more weakness on the right upper extremity. Repeat CT of the head was ordered stat At the time of examination patient's strength of the right upper extremity imp roved still weak than before. She did have some slurred speech. Denied any headache, no blurry vision, no nausea vomiting, no chest pain, no shortness of breath. No blurry vision. Review of Systems Review of Systems: All systems reviewed & are unremarkable except as noted in Subjective Physical Exam Physical Exam: Constitutional: No acute distress HEENT: EOMI, PERRLA, slurred speech Respiratory system: Good air entry bilaterally, no wheeze, no rhonchi, no crackles CVS: S1-S2 positive, no murmurs or gallops Abdomen: Soft, nontender, nondistended, positive bowel sounds x4 Extremities: +2 pulses bilaterally radialis/ dorsalis pedis, no cyanosis, no edema Neuro: Awake alert oriented x3, strength right upper extremity 3 out of 5, rest of the extremities 5 out of 5 Psych: Normal mood and affect G/U: Positive [place] Results & Data Results & Data ([facility]) Vital Signs (Past 12 Hours) Vital Signs Temp Pulse Pulse Resp BP BP Pulse Ox 10/28/22 08:38 36.7 C 52 L 14 158/62 H 95 10/28/22 07:38 36.6 C 60 16 162/78 H 96 10/28/22 07:03 10/28/22 06:38 36.6 C 51 L 18 148/63 H 98 10/28/22 06:08 36.7 C 56 L 20 148/63 H 97 10/28/22 05:38 36.9 C 61 18 177/67 H 96 10/28/22 05:08 36.9 C 70 18 139/73 96 10/28/22 04:38 36.6 C 51 L 18 164/55 H 98 10/28/22 04:08 36.9 C 54 L 20 136/65 95 10/28/22 03:38 36.9 C 59 L 18 163/73 H 95 10/28/22 03:08 36.9 C 60 18 174/79 H 96 10/28/22 02:38 36.9 C 60 18 149/70 H 96 10/28/22 02:08 36.9 C 60 20 147/72 H 94 10/28/22 01:38 36.9 C 59 L 18 150/70 H 94 10/28/22 01:08 36.9 C 59 L 18 184/93 H 91 10/28/22 00:43 36.9 C 84 18 113/75 91 10/28/22 00:38 36.9 C 90 19 144/85 H 90 10/28/22 00:58 37 C 62 14 144/85 H 90 10/28/22 00:21 60 16 177/99 H 97 10/28/22 00:06 80 18 177/93 H 96 10/27/22 23:51 61 16 162/92 H 97 10/27/22 23:36 99 H 16 176/75 H 97 10/27/22 23:21 65 18 167/87 H 97 10/27/22 23:06 89 18 168/86 H 98 10/27/22 22:51 69 18 164/94 H 96 10/27/22 22:52 88 L 10/27/22 22:38 92 H 18 157/85 H 90 10/27/22 22:27 85 19 169/102 H 93 10/27/22 22:17 86 26 H 163/85 H 97 10/27/22 21:49 76 16 164/70 H 94 O2 Del Method O2 Flow Rate 10/28/22 08:38 Nasal Cannula 2 10/28/22 07:38 Nasal Cannula 2 10/28/22 07:03 Nasal Cannula 2 10/28/22 06:38 Nasal Cannula 2 10/28/22 06:08 Nasal Cannula 2 10/28/22 05:38 Nasal Cannula 2 10/28/22 05:08 Nasal Cannula 2 10/28/22 04:38 Nasal Cannula 2 10/28/22 04:08 Nasal Cannula 2 10/28/22 03:38 Nasal Cannula 2 10/28/22 03:08 Nasal Cannula 2 10/28/22 02:38 Nasal Cannula 2 10/28/22 02:08 Nasal Cannula 2 10/28/22 01:38 Nasal Cannula 2 10/28/22 01:08 Nasal Cannula 2 10/28/22 00:43 Nasal Cannula 2 10/28/22 00:38 Room Air 10/28/22 00:58 Room Air 10/28/22 00:21 Nasal Cannula 2 10/28/22 00:06 Nasal Cannula 2 10/27/22 23:51 Nasal Cannula 2 10/27/22 23:36 Nasal Cannula 2 10/27/22 23:21 Nasal Cannula 2 10/27/22 23:06 Nasal Cannula 2 10/27/22 22:51 Nasal Cannula 2 10/27/22 22:52 Nasal Cannula 0 10/27/22 22:38 Room Air 10/27/22 22:27 Room Air 10/27/22 22:17 Room Air 10/27/22 21:49 Room Air Laboratory Results 10/27/22 22:20 10/27/22 22:20 Coding Level of Care Code Critical Care 1st 30-74 mins Diagnoses Acute CVA (cerebrovascular accident) I63.9 Right sided weakness R53.1 Facial droop R29.810 Slurred speech R47.81 Elevated serum glucose R73.9 Time Spent (min) 33
--- NOTE | 2022-10-28 10:56 | Electrocardiogram Report ---
Test Reason : Blood Pressure : / mmHG Vent. Rate : 099 BPM Atrial Rate : 099 BPM P-R Int : 192 ms QRS Dur : 074 ms QT Int : 318 ms P-R-T Axes : 057 004 035 degrees QTc Int : 408 ms Poor data quality, interpretation may be adversely affected Normal sinus rhythm Possible Left atrial enlargement Nonspecific ST and T wave abnormality consider lateral ischemia Abnormal ECG When compared with ECG of 25-MAR-2008 13:46, Vent. rate has increased BY [address] now depressed in Anterior leads T wave inversion now evident in Anterior leads Confirmed by Butch Muñiz ([id number]) on 10/28/2022 10:56:05 AM Referred By: REFERRED SELF Confirmed By:Butch Muñiz
[2022-10-28] MEDS: hydrALAZINE HCL 20 MG/ML VIAL IV PRN ×2 (11:45→18:53)
[2022-10-28] MEDS ORDERED: GADOBUTROL 30ML VIAL IV ONE (12:04)
--- NOTE | 2022-10-28 12:55 | Magnetic Resonance Report ---
MR brain wo/w con CLINICAL HISTORY: acute cva TECHNIQUE: Multiplanar and multisequence MR images of the brain were obtained prior to and following administration of gadolinium contrast. Comparison: Comparison is made to CT head 10/28/2022 FINDINGS: Restricted diffusion is seen in the left posterior putamen. Mild associated white matter edema is see n. Chronic age-related changes are seen in the white matter compatible with microvascular ischemic ch skylar. Ex vacuo ventriculomegaly and sulcal enlargement is noted compatible with diffuse encephalomala oksana. No mass or abnormal enhancement is seen. Minimal mass effect is seen upon the left lateral ventr icle and there is no midline shift. There is no evidence of acute intraparenchymal hemorrhage. No ext ra axial fluid collections are seen. The corpus callosum, pituitary gland, and cerebellar tonsils margaret ear grossly unremarkable. Flow voids of the major intracranial arterial vessels are identified. The imaged portions of the para nasal sinuses, mastoid air cells, and orbits are unremarkable. 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 ACT 112: Negative or not required by law. Electronically signed by: Kirk Garcia M.D. 10/28/2022 12:54 PM
--- NOTE | 2022-10-28 13:33 | Hospitalist Progress Note ---
Date of Service October 28, 2022 Assessment & Plan (1) Acute CVA (cerebrovascular accident): (2) Right sided weakness: Plan: An 82-year-old female who presents with acute cerebrovascular accident. 1. Acute cerebrovascular accident with right-sided weakness, status post tnk Currently patient is unable to move her right upper extremity or right lower extremity. Says previously she was able to move somewhat, then worsened again. Had stat CT head done this morning, which was unchanged. Passed swallow evaluation in the ER, alert and oriented. Repeat CT after 24 hours post-TNK - done , as above Closely monitor in the ICU. Permissive hypertension. 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 echocardiogram - pending PT, OT evaluation. Started statin in the ER. Stroke neurologist, Dr. Gardner - contacted on admission - told to call him back if the patient developed significant symptoms again as plan to start aspirin and Plavix before 24 hours if the patient's symptoms gets worse . Neurology consulted - pending eval 2. Hyperlipidemia, not on any medication. Follow lipid profile. Starting on statin. 3. Deep venous thrombosis prophylaxis: SCDs. DISPOSITION: Closely monitor in the ICU Code: full code. PT, OT prior to discharge - may need rehab/snf Admission and Anticipated Discharge Date Admission Date: October 27, 2022 Subjective Patient seen in follow-up of CVA Currently laying in bed, in no acute distress Cannot move her right upper extremity nor right lower extremity Patient reports she was improving and was able to move her extremities however then it got worse again. Stat CT head was obtained this morning, which was unchanged MRI brain pending, and neurology eval pending. Daughters present at the bedside. Denies any fevers chills chest pain shortness of breath. Denies any abdominal pain. Review of Systems Review of Systems: All systems reviewed & are unremarkable except as noted in Subjective Physical Exam Physical Exam: GENERAL: The patient is alert and oriented, seems to have mild facial droop on the right side. HEENT: Pupils equal, round and reactive to light. Mild right facial droop. Oral mucosa moist. Tongue is midline. NECK: No JVD or neck masses seen. CARDIOVASCULAR: S1 and S2 heard. Regular rate and rhythm. No murmur, no gallop. RESPIRATORY: Normal AP diameter. No accessory muscle use. No wheezing or crackles. ABDOMEN: Soft, bowel sounds present, nontender, no distention. NEURO: Alert and oriented x3. Mild right facial droop. Cannot move her right upper extremity, nor Right lower extremity. Decreased sensation in RUE and RLE. EXTREMITIES: No edema, no erythema. Results & Data Results & Data ([facility]) Vital Signs (Past 12 Hours) Vital Signs Temp Pulse Pulse Resp BP Pulse Ox O2 Del Method 10/28/22 13:00 72 15 166/57 H 95 Nasal Cannula 10/28/22 12:38 36.5 C 64 16 179/71 H 96 Nasal Cannula 10/28/22 12:15 66 18 173/55 H 98 Nasal Cannula 10/28/22 12:00 61 16 174/60 H 97 Nasal Cannula 10/28/22 11:45 64 20 184/61 H 94 Nasal Cannula 10/28/22 10:38 36.7 C 65 15 155/70 H 97 Nasal Cannula 10/28/22 08:50 50 L 10/28/22 09:38 36.6 C 55 L 15 167/67 H 97 Nasal Cannula 10/28/22 08:38 36.7 C 52 L 14 158/62 H 95 Nasal Cannula 10/28/22 07:38 36.6 C 60 16 162/78 H 96 Nasal Cannula 10/28/22 07:03 Nasal Cannula 10/28/22 06:38 36.6 C 51 L 18 148/63 H 98 Nasal Cannula 10/28/22 06:08 36.7 C 56 L 20 148/63 H 97 Nasal Cannula 10/28/22 05:38 36.9 C 61 18 177/67 H 96 Nasal Cannula 10/28/22 05:08 36.9 C 70 18 139/73 96 Nasal Cannula 10/28/22 04:38 36.6 C 51 L 18 164/55 H 98 Nasal Cannula 10/28/22 04:08 36.9 C 54 L 20 136/65 95 Nasal Cannula 10/28/22 03:38 36.9 C 59 L 18 163/73 H 95 Nasal Cannula 10/28/22 03:08 36.9 C 60 18 174/79 H 96 Nasal Cannula 10/28/22 02:38 36.9 C 60 18 149/70 H 96 Nasal Cannula 10/28/22 02:08 36.9 C 60 20 147/72 H 94 Nasal Cannula 10/28/22 01:38 36.9 C 59 L 18 150/70 H 94 Nasal Cannula O2 Flow Rate 10/28/22 13:00 2 10/28/22 12:38 2 10/28/22 12:15 2 10/28/22 12:00 2 10/28/22 11:45 2 10/28/22 10:38 2 10/28/22 08:50 10/28/22 09:38 2 10/28/22 08:38 2 10/28/22 07:38 2 10/28/22 07:03 2 10/28/22 06:38 2 10/28/22 06:08 2 10/28/22 05:38 2 10/28/22 05:08 2 10/28/22 04:38 2 10/28/22 04:08 2 10/28/22 03:38 2 10/28/22 03:08 2 10/28/22 02:38 2 10/28/22 02:08 2 10/28/22 01:38 2 Laboratory Results 10/28/22 10/27/22 10/27/22 Range/Units 02:00 22:57 22:26 WBC (4.8-10.8) K/ul RBC (3.93-5.22) M/uL Hgb (12.0-16.0) g/dl Hct (34.1-44.9) % MCV (80.0-100.0) fL MCH (25.0-34.0) pg MCHC (32.0-36.0) g/dL RDW Std Deviation (36.4-46.3) fL RDW Coeff of Robin (11.5-14.5) % Plt Count (130-400) K/uL MPV (9.4-12.3) fL Immature Gran % (Auto) % Neut % (Auto) % Lymph % (Auto) % [place]ulloch % (Auto) % Eos % (Auto) % Baso % (Auto) % Neut # (Auto) (1.4-6.5) K/uL Lymph # (Auto) (1.2-3.4) K/uL [place]ulloch # (Auto) (0.24-0.82) K/uL Eos # (Auto) (0-0.50) K/uL Baso # (Auto) (0-0.2) K/uL Immature Gran # (Auto) (0.00-0.02) K/uL PT (9.0-12.0) Seconds INR (0.9-1.1) APTT (21.0-31.0) Seconds PTT Ratio Sodium (136-145) mmol/L Potassium (3.5-5.1) mmol/L Chloride (98-107) mmol/L Carbon Dioxide (21-32) mmol/L Anion Gap (3-11) BUN (6-23) mg/dl Creatinine (0.6-1.2) mg/dl Est Cr Clr Drug Dosing Est GFR ( Amer) ml/min Est GFR (Non-Af Amer) ml/min BUN/Creatinine Ratio (10-20) Glucose (70-99(Fasting)) mg/dl POC Glucose (70-99) mg/dl Calcium (8.5-10.1) mg/dl Magnesium (1.7-2.4) mg/dl Total Bilirubin (0.2-1.0) mg/dl AST (13-39) U/L ALT (7-52) U/L Alkaline Phosphatase (34-104) U/L Troponin I High Sens (0-14) pg/ml Total Protein (6.0-8.3) gm/dl Albumin (3.4-5.0) gm/dl Globulin (2.5-4.0) gm/dl Albumin/Globulin Ratio (0.9-2) Urine Color Yellow Urine Appearance Clear (Clear) Urine pH 8.0 H (4.5-7.5) Ur Specific [place] 1.035 H (1.000-1.030) Urine Protein Negative (Negative) Urine Glucose (UA) Negative (Negative) Urine Ketones Negative (Negative) Urine Blood Negative (Negative) Urine Nitrite Negative (Negative) Urine Bilirubin Negative (Negative) Urine Urobilinogen Negative (Negative) Ur Leukocyte Esterase Negative (Negative) Nasal Screen MRSA (PCR) Negative (Negative) SARS-CoV-2, RNA, NAAT (NEGATIVE) Blood Type AB Positive Antibody Screen NEGATIVE 10/27/22 10/27/22 10/27/22 Range/Units 22:22 22:20 22:20 WBC (4.8-10.8) K/ul RBC (3.93-5.22) M/uL Hgb (12.0-16.0) g/dl Hct (34.1-44.9) % MCV (80.0-100.0) fL MCH (25.0-34.0) pg MCHC (32.0-36.0) g/dL RDW Std Deviation (36.4-46.3) fL RDW Coeff of Robin (11.5-14.5) % Plt Count (130-400) K/uL MPV (9.4-12.3) fL Immature Gran % (Auto) % Neut % (Auto) % Lymph % (Auto) % [place]ulloch % (Auto) % Eos % (Auto) % Baso % (Auto) % Neut # (Auto) (1.4-6.5) K/uL Lymph # (Auto) (1.2-3.4) K/uL M[place]ulloch # (Auto) (0.24-0.82) K/uL Eos # (Auto) (0-0.50) K/uL Baso # (Auto) (0-0.2) K/uL Immature Gran # (Auto) (0.00-0.02) K/uL PT (9.0-12.0) Seconds INR (0.9-1.1) APTT (21.0-31.0) Seconds PTT Ratio Sodium 138 (136-145) mmol/L Potassium 3.7 (3.5-5.1) mmol/L Chloride 103 (98-107) mmol/L Carbon Dioxide 29 (21-32) mmol/L Anion Gap 6 (3-11) BUN 31 H (6-23) mg/dl Creatinine 0.70 (0.6-1.2) mg/dl Est Cr Clr Drug Dosing Not Reportable Est GFR ( Amer) 93.5 ml/min Est GFR (Non-Af Amer) 80.7 ml/min BUN/Creatinine Ratio 44.3 H (10-20) Glucose 127 H (70-99(Fasting)) mg/dl POC Glucose 125 H (70-99) mg/dl Calcium 8.7 (8.5-10.1) mg/dl Magnesium 2.1 (1.7-2.4) mg/dl Total Bilirubin 0.2 (0.2-1.0) mg/dl AST 16 (13-39) U/L ALT 12 (7-52) U/L Alkaline Phosphatase 69 (34-104) U/L Troponin I High Sens 4.8 (0-14) pg/ml Total Protein 6.8 (6.0-8.3) gm/dl Albumin 4.0 (3.4-5.0) gm/dl Globulin 2.8 (2.5-4.0) gm/dl Albumin/Globulin Ratio 1.4 (0.9-2) Urine Color Urine Appearance (Clear) Urine pH (4.5-7.5) Ur Specific [place] (1.000-1.030) Urine Protein (Negative) Urine Glucose (UA) (Negative) Urine Ketones (Negative) Urine Blood (Negative) Urine Nitrite (Negative) Urine Bilirubin (Negative) Urine Urobilinogen (Negative) Ur Leukocyte Esterase (Negative) Nasal Screen MRSA (PCR) (Negative) SARS-CoV-2, RNA, NAAT NEGATIVE (NEGATIVE) Blood Type Antibody Screen 10/27/22 10/27/22 Range/Units 22:20 22:20 WBC 9.30 (4.8-10.8) K/ul RBC 4.42 (3.93-5.22) M/uL Hgb 13.8 (12.0-16.0) g/dl Hct 41.5 (34.1-44.9) % MCV 93.9 (80.0-100.0) fL MCH 31.2 (25.0-34.0) pg MCHC 33.3 (32.0-36.0) g/dL RDW Std Deviation 46.6 H (36.4-46.3) fL RDW Coeff of Robin 13.4 (11.5-14.5) % Plt Count 270 (130-400) K/uL MPV 10.3 (9.4-12.3) fL Immature Gran % (Auto) 0.5 % Neut % (Auto) 68.4 % Lymph % (Auto) 22.3 % M[place]ulloch % (Auto) 6.9 % Eos % (Auto) 1.1 % Baso % (Auto) 0.8 % Neut # (Auto) 6.37 (1.4-6.5) K/uL Lymph # (Auto) 2.07 (1.2-3.4) K/uL M[place]ulloch # (Auto) 0.64 (0.24-0.82) K/uL Eos # (Auto) 0.10 (0-0.50) K/uL Baso # (Auto) 0.07 (0-0.2) K/uL Immature Gran # (Auto) 0.05 H (0.00-0.02) K/uL PT 10.3 (9.0-12.0) Seconds INR 1.0 (0.9-1.1) APTT 22.2 (21.0-31.0) Seconds PTT Ratio 0.8 Sodium (136-145) mmol/L Potassium (3.5-5.1) mmol/L Chloride (98-107) mmol/L Carbon Dioxide (21-32) mmol/L Anion Gap (3-11) BUN (6-23) mg/dl Creatinine (0.6-1.2) mg/dl Est Cr Clr Drug Dosing Est GFR ( Amer) ml/min Est GFR (Non-Af Amer) ml/min BUN/Creatinine Ratio (10-20) Glucose (70-99(Fasting)) mg/dl POC Glucose (70-99) mg/dl Calcium (8.5-10.1) mg/dl Magnesium (1.7-2.4) mg/dl Total Bilirubin (0.2-1.0) mg/dl AST (13-39) U/L ALT (7-52) U/L Alkaline Phosphatase (34-104) U/L Troponin I High Sens (0-14) pg/ml Total Protein (6.0-8.3) gm/dl Albumin (3.4-5.0) gm/dl Globulin (2.5-4.0) gm/dl Albumin/Globulin Ratio (0.9-2) Urine Color Urine Appearance (Clear) Urine pH (4.5-7.5) Ur Specific [place] (1.000-1.030) Urine Protein (Negative) Urine Glucose (UA) (Negative) Urine Ketones (Negative) Urine Blood (Negative) Urine Nitrite (Negative) Urine Bilirubin (Negative) Urine Urobilinogen (Negative) Ur Leukocyte Esterase (Negative) Nasal Screen MRSA (PCR) (Negative) SARS-CoV-2, RNA, NAAT (NEGATIVE) Blood Type Antibody Screen Medications Administered Current Inpatient Medications Aspirin (No Aspirin Within 24hrs Of Thrombolytic-Stroke) 1 each PO UD ROBERTO Stop: 10/28/22 22:29 Atorvastatin Calcium (Atorvastatin 20 Mg Tab) 60 mg PO QPM ROBERTO Stop: 11/27/22 20:59 Hydralazine HCl (Hydralazine Hcl 20 Mg/Ml Vial) 5 mg IV Q4 PRN PRN Reason: SBP >180 and/or DBP>105 Stop: 11/27/22 01:15 Last Admin: 10/28/22 11:45 Dose: 5 mg Sodium Chloride (Nss 1000ml) 1,000 mls @ 125 mls/hr IV .Q8H [facility] Stop: 11/27/22 00:43 Last Admin: 10/28/22 10:45 Dose: 125 mls/hr Labetalol HCl (Labetalol Hcl Iv 5 Mg/Ml 20ml) 10 mg IV Q2H PRN PRN Reason: SBP >180 and/or DBP>105 Stop: 11/27/22 01:15 Miscellaneous (Icu Protocol For Hyperglycemia) 1 each N/A ACHS [facility] Stop: 10/30/22 07:29 Last Admin: 10/28/22 12:42 Dose: Not Given Miscellaneous Information (Pharmacist Discharge Med Rec Consult) 1 each N/A UD PRN PRN Reason: Consult Stop: 11/27/22 00:43
--- NOTE | 2022-10-28 13:47 | Neurology Consultation ---
Date of Consultation October 28, 2022 Assessment & Plan (1) Acute CVA (cerebrovascular accident): Suspect small to medium stroke in the left MCA distribution, cryptogenic at present. No significant atheromatous disease is present, this is likely cardioembolic. Awaiting surface echocardiogram. Seems to have tolerated thrombolysis well. Follow-up head CT in 24 hours. Restart antiplatelet agent at 24 hours. Target a mean arterial pressure in the 215601 range if able without pressors. Avoid lowering patient's blood pressure if at all possible. Ensure good hydration. PT, OT, ST. Rehab eval. Statin. Having intermittent movements in the right leg, possibly from basal ganglia involvement. Thinks he might of gotten a bit of improvement yesterday from low- dose Klonopin which we will continue. We will also add Neurontin 100 mg 3 times daily. Reassess tomorrow. History of Present Illness Reason for Consultation: Stroke Attending Physician: Rayray Palm MD History of Present Illness Patient is left-handed. Yesterday, while doing a handwritten word puzzle, she noted her right arm became somewhat clumsy. Shortly afterwards she became very weak on her right side and apparently rolled onto the floor. EMS was called and she was brought in as a stroke alert. Was seen by teleneurology. Received intravenous thrombolysis. Has had a fluctuating course since then. No headache. Denies lip swelling or itching. No prior similar symptoms. Allergies Allergy/AdvReac Type Severity Reaction Status Date / Time adhesive tape Allergy Intermediate ITCHY RED Verified 10/27/22 22:24 RASH Home Medications Medication Instructions Recorded Confirmed Type sodium chloride 5 % eye drops 1 drp ophthalmic (eye) BID PRN Eye 10/27/22 10/27/22 History (Aarti 128) Irritation Patient History Medical History No significant medical problems Social History Smoking Status: Never smoker Second Hand Exposure: No; Do You Dip or Chew Tobacco: No; Tobacco Cessation Education Requested by Patient: No Hx Alcohol Use: No Hx Substance Use: No Preferred Language: Danish Communication Ability: Effective Safety Specialist Required: No Beliefs That Will Affect Care: None Current Living Situation: Alone Feels Safe at Home: Yes Safety Concerns: Feels Safe At This Time Assistive Devices: Glasses Assistive Devices Comment: Not here Review of Systems Review of Systems: Unreliable Physical Exam Physical Exam: Lying in bed, appears comfortable. Awake, alert, interactive. Answers questions appropriately. Speech very slightly slurred but no paraphasic errors. Occasional twitching movements seen in the right foot, not rhythmic, occurring once every 5 to 6 seconds. Strength on the left side is normal. Moderate loss of strength in the right arm, strength better retained in the right leg. She can raise her right foot off the bed an inch or 2. She can only weakly pinch with the fingers of the right hand. Can exert some resistance in right arm flexion and extension. Both toes silent. Results & Data ([facility]) Vital Signs (Past 12 Hours) Vital Signs Temp Pulse Pulse Resp BP Pulse Ox O2 Del Method 10/28/22 08:00 Nasal Cannula 10/28/22 13:00 72 15 166/57 H 95 Nasal Cannula 10/28/22 12:38 36.5 C 64 16 179/71 H 96 Nasal Cannula 10/28/22 12:15 66 18 173/55 H 98 Nasal Cannula 10/28/22 12:00 61 16 174/60 H 97 Nasal Cannula 10/28/22 11:45 64 20 184/61 H 94 Nasal Cannula 10/28/22 10:38 36.7 C 65 15 155/70 H 97 Nasal Cannula 10/28/22 08:50 50 L 10/28/22 09:38 36.6 C 55 L 15 167/67 H 97 Nasal Cannula 10/28/22 08:38 36.7 C 52 L 14 158/62 H 95 Nasal Cannula 10/28/22 07:38 36.6 C 60 16 162/78 H 96 Nasal Cannula 10/28/22 07:03 Nasal Cannula 10/28/22 06:38 36.6 C 51 L 18 148/63 H 98 Nasal Cannula 10/28/22 06:08 36.7 C 56 L 20 148/63 H 97 Nasal Cannula 10/28/22 05:38 36.9 C 61 18 177/67 H 96 Nasal Cannula 10/28/22 05:08 36.9 C 70 18 139/73 96 Nasal Cannula 10/28/22 04:38 36.6 C 51 L 18 164/55 H 98 Nasal Cannula 10/28/22 04:08 36.9 C 54 L 20 136/65 95 Nasal Cannula 10/28/22 03:38 36.9 C 59 L 18 163/73 H 95 Nasal Cannula 10/28/22 03:08 36.9 C 60 18 174/79 H 96 Nasal Cannula 10/28/22 02:38 36.9 C 60 18 149/70 H 96 Nasal Cannula 10/28/22 02:08 36.9 C 60 20 147/72 H 94 Nasal Cannula 10/28/22 01:38 36.9 C 59 L 18 150/70 H 94 Nasal Cannula O2 Flow Rate 10/28/22 08:00 2 10/28/22 13:00 2 10/28/22 12:38 2 10/28/22 12:15 2 10/28/22 12:00 2 10/28/22 11:45 2 10/28/22 10:38 2 10/28/22 08:50 10/28/22 09:38 2 10/28/22 08:38 2 10/28/22 07:38 2 10/28/22 07:03 2 10/28/22 06:38 2 10/28/22 06:08 2 10/28/22 05:38 2 10/28/22 05:08 2 10/28/22 04:38 2 10/28/22 04:08 2 10/28/22 03:38 2 10/28/22 03:08 2 10/28/22 02:38 2 10/28/22 02:08 2 10/28/22 01:38 2
[2022-10-28] MEDS: BACLOFEN 10 MG TAB PO SCH ×2 (14:56→21:20)
[2022-10-28] MEDS: GABAPENTIN 100 MG CAP PO SCH ×2 (14:56→21:20)
[2022-10-28] MEDS: ATORVASTATIN 20 MG TAB PO SCH (21:20)
--- NOTE | 2022-10-28 21:41 | CT Scan Report ---
CT head/brain wo con CLINICAL HISTORY: 24 hour post TNKase- eval for hemmorhagic conversi Technique: Contiguous axial CT images of the head were acquired from the base of the skull to the carlos riky without intravenous contrast administration. Images were viewed in brain, subdural and bone windo ws. Automated dose lowering techniques and/or adjustment according to patient size were utilized for this exam. Comparison: Comparison is made to CT head 10/28/2022 and MRI brain 10/28/2022 Findings: Redemonstration of a hypodensity in the left putamen which is somewhat more conspicuous on today's ex am. There is no evidence of hemorrhage. Imaged portions of the paranasal sinuses and mastoid air cells are clear. The orbits appear normal. There are no acute fractures of the calvaria or scalp swelling. Impression: No evidence of hemorrhagic transformation of previously noted left putamen infarct. ACT 112: Negative or not required by law. Electronically signed by: Kirk Garcia M.D. 10/28/2022 9:39 PM
[2022-10-28] MEDS ORDERED: ASPIRIN 81 MG ECTAB PO STA (21:48)
[2022-10-28] MEDS ORDERED: SODIUM CHLORIDE 0.9% 1000ML 1,000 ML IV SCH (22:16)
[2022-10-28 22:58] LABS: Basophils # (auto) 0.04 K/uL (0-0.2); Basophils % (auto) 0.4 %; Eosinophils # (auto) 0.08 K/uL (0-0.50); Eosinophils % (auto) 0.8 %; Hematocrit (blood only) 38.6 % (34.1-44.9); Hemoglobin 12.8 g/dl (12.0-16.0); Immature Granulocytes # (auto) 0.03 K/uL (0.00-0.02); Immature Granulocytes % (auto) 0.3 %; Lymphocytes # (auto) 2.01 K/uL (1.2-3.4); Lymphocytes % (auto) 20.6 %; Mean Corpuscular Hemoglobin 30.8 pg (25.0-34.0); Mean Corpuscular Hgb Conc 33.2 g/dL (32.0-36.0); Mean Corpuscular Volume 92.8 fL (80.0-100.0); Monocytes # (auto) 0.79 K/uL (0.24-0.82); Monocytes % (auto) 8.1 %; Neutrophils # (auto) 6.81 K/uL (1.4-6.5); Neutrophils % (auto) 69.8 %; Platelet Count 243 K/uL (130-400); RDW Coefficient of Variation 13.6 % (11.5-14.5); RDW Standard Deviation 46.5 fL (36.4-46.3); Red Blood Count 4.16 M/uL (3.93-5.22); White Blood Count 9.76 K/ul (4.8-10.8)
[2022-10-28 23:18] LABS: Albumin Level 3.6 gm/dl (3.4-5.0); Bilirubin Direct 0.1 mg/dl (0-0.2); Bilirubin,Total 0.5 mg/dl (0.2-1.0); Calcium 8.2 mg/dl (8.5-10.1); Chol HDL Ratio 3.7 (0-5); Creatinine Clr Calc Pharmacy 80.3 ml/min; Est GFR (African American) 103.1 ml/min; Magnesium 2.3 mg/dl (1.7-2.4); Potassium 3.6 mmol/L (3.5-5.1); Total Protein 6.1 gm/dl (6.0-8.3)
[2022-10-29 04:53] LABS: Basophils # (auto) 0.05 K/uL (0-0.2); Basophils % (auto) 0.5 %; Eosinophils # (auto) 0.07 K/uL (0-0.50); Eosinophils % (auto) 0.6 %; Hematocrit (blood only) 37.5 % (34.1-44.9); Hemoglobin 12.6 g/dl (12.0-16.0); Immature Granulocytes # (auto) 0.03 K/uL (0.00-0.02); Immature Granulocytes % (auto) 0.3 %; Lymphocytes # (auto) 1.75 K/uL (1.2-3.4); Lymphocytes % (auto) 16.1 %; Mean Corpuscular Hemoglobin 30.9 pg (25.0-34.0); Mean Corpuscular Hgb Conc 33.6 g/dL (32.0-36.0); Mean Corpuscular Volume 91.9 fL (80.0-100.0); Monocytes # (auto) 0.83 K/uL (0.24-0.82); Monocytes % (auto) 7.6 %; Neutrophils # (auto) 8.12 K/uL (1.4-6.5); Neutrophils % (auto) 74.9 %; Platelet Count 245 K/uL (130-400); RDW Coefficient of Variation 13.9 % (11.5-14.5); RDW Standard Deviation 46.9 fL (36.4-46.3); Red Blood Count 4.08 M/uL (3.93-5.22); White Blood Count 10.85 K/ul (4.8-10.8)
[2022-10-29 05:17] LABS: Albumin Level 3.5 gm/dl (3.4-5.0); Bilirubin Direct 0.1 mg/dl (0-0.2); Bilirubin,Total 0.5 mg/dl (0.2-1.0); Magnesium 2.3 mg/dl (1.7-2.4); Total Protein 6.1 gm/dl (6.0-8.3)
--- NOTE | 2022-10-29 07:37 | Hospitalist Progress Note ---
Date of Service October 29, 2022 Assessment & Plan (1) Acute CVA (cerebrovascular accident): (2) Right sided weakness: Plan: An 82-year-old female who presents with acute cerebrovascular accident. 1. Acute cerebrovascular accident with right-sided weakness, status post tnk Currently patient is unable to move her right upper extremity or right lower extremity. Says previously she was able to move somewhat, then worsened again. Had stat CT head done this morning, which was unchanged. Passed swallow evaluation in the ER, alert and oriented. Repeat CT after 24 hours post-TNK - done , as above Closely monitor in the ICU. Permissive hypertension. 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 Echocardiogram -normal LV wall thickness. LV wall motion is normal. LVEF 55 to 60%. Grade 1 diastolic dysfunction. Interatrial septum is intact with no evidence for an atrial septal defect as assessed with administration of agitated saline contrast. PT, OT evaluation. Started statin in the ER. Stroke neurologist, Dr. Gardner - contacted on admission - told to call him back if the patient developed significant symptoms again as plan to start aspirin and Plavix before 24 hours if the patient's symptoms gets worse . Neurology consulted inpt and following - pt continues on ASA, and lipitor; also started on baclofen and gabapentin 2. Hyperlipidemia, not on any medication. Follow lipid profile - LDL 119. Started on statin. 3. Deep venous thrombosis prophylaxis: SCDs. DISPOSITION: downgrade from ICU Code: full code. PT, OT prior to discharge - may need rehab/snf Admission and Anticipated Discharge Date Admission Date: October 27, 2022 Subjective Patient seen in follow-up of CVA Currently laying in bed, in no acute distress, family at the bedside, patient is eating lunch Cannot move her right upper extremity very much, only able to squeeze my fingers softly with her right hand Moves right lower extremity slightly Patient reports she was improving and was able to move her extremities however then it got worse again. Stat CT head was obtained this morning, which was unchanged MRI brain pending, and neurology eval pending. Daughters present at the bedside. Denies any fevers chills chest pain shortness of breath. Denies any abdominal pain. Review of Systems Review of Systems: All systems reviewed & are unremarkable except as noted in Subjective Physical Exam Physical Exam: GENERAL: The patient is alert and oriented, seems to have mild facial droop on the right side. HEENT: Pupils equal, round and reactive to light. Mild right facial droop. Oral mucosa moist. NECK: No JVD or neck masses seen. CARDIOVASCULAR: S1 and S2 heard. Regular rate and rhythm. No murmur, no gallop. RESPIRATORY: Normal AP diameter. No accessory muscle use. No wheezing or crackles. ABDOMEN: Soft, bowel sounds present, nontender, no distention. NEURO: Alert and oriented x3. Mild right facial droop. Cannot move her right upper extremity much unable to squeeze my fingers softly, able to lift Right lower extremity about 2 inches above from bed. Decreased sensation in RUE and RLE. EXTREMITIES: No edema, no erythema. Results & Data Results & Data ([facility]) Vital Signs (Past 12 Hours) Vital Signs Temp Pulse Pulse Resp BP BP Pulse Ox 10/29/22 07:00 57 L 17 79 L 10/29/22 06:00 56 L 14 93 10/29/22 05:00 53 L 16 93 10/29/22 04:00 57 L 19 95 10/29/22 04:00 140/51 L 10/29/22 03:00 56 L 15 94 10/29/22 02:00 56 L 14 94 10/29/22 01:00 69 15 93 10/29/22 00:00 59 L 15 91 10/29/22 00:00 133/50 L 10/28/22 23:00 72 17 92 10/28/22 22:30 163/67 H 10/28/22 22:30 77 13 93 10/28/22 22:00 60 15 92 10/28/22 22:00 164/66 H 10/28/22 21:43 167/136 H 10/28/22 21:43 62 13 10/28/22 21:00 58 L 15 95 10/28/22 21:00 143/57 H 10/28/22 20:30 60 14 96 10/28/22 20:30 152/59 H 10/28/22 20:01 166/68 H 10/28/22 20:01 69 23 96 10/28/22 20:01 166/68 H 10/28/22 20:00 77 15 97 10/28/22 22:38 37 C 60 20 163/64 H 94 10/28/22 21:38 37 C 58 L 20 164/66 H 95 10/28/22 20:38 37 C 57 L 18 152/59 H 94 10/28/22 20:00 10/28/22 19:38 37.1 C 65 20 179/62 H 95 O2 Del Method O2 Flow Rate 10/29/22 07:00 10/29/22 06:00 10/29/22 05:00 10/29/22 04:00 10/29/22 04:00 10/29/22 03:00 10/29/22 02:00 10/29/22 01:00 10/29/22 00:00 10/29/22 00:00 10/28/22 23:00 10/28/22 22:30 10/28/22 22:30 10/28/22 22:00 10/28/22 22:00 10/28/22 21:43 10/28/22 21:43 10/28/22 21:00 10/28/22 21:00 10/28/22 20:30 10/28/22 20:30 10/28/22 20:01 10/28/22 20:01 10/28/22 20:01 10/28/22 20:00 10/28/22 22:38 Nasal Cannula 2 10/28/22 21:38 Nasal Cannula 2 10/28/22 20:38 Nasal Cannula 2 10/28/22 20:00 Nasal Cannula 2 10/28/22 19:38 Nasal Cannula 2 Laboratory Results 10/29/22 10/29/22 10/28/22 Range/Units 04:44 04:44 22:52 WBC 10.85 H 9.76 (4.8-10.8) K/ul RBC 4.08 4.16 (3.93-5.22) M/uL Hgb 12.6 12.8 (12.0-16.0) g/dl Hct 37.5 38.6 (34.1-44.9) % MCV 91.9 92.8 (80.0-100.0) fL MCH 30.9 30.8 (25.0-34.0) pg MCHC 33.6 33.2 (32.0-36.0) g/dL RDW Std Deviation 46.9 H 46.5 H (36.4-46.3) fL RDW Coeff of Robin 13.9 13.6 (11.5-14.5) % Plt Count 245 243 (130-400) K/uL MPV 10.0 10.0 (9.4-12.3) fL Immature Gran % (Auto) 0.3 0.3 % Neut % (Auto) 74.9 69.8 % Lymph % (Auto) 16.1 20.6 % [place] % (Auto) 7.6 8.1 % Eos % (Auto) 0.6 0.8 % Baso % (Auto) 0.5 0.4 % Neut # (Auto) 8.12 H 6.81 H (1.4-6.5) K/uL Lymph # (Auto) 1.75 2.01 (1.2-3.4) K/uL [place] # (Auto) 0.83 H 0.79 (0.24-0.82) K/uL Eos # (Auto) 0.07 0.08 (0-0.50) K/uL Baso # (Auto) 0.05 0.04 (0-0.2) K/uL Immature Gran # (Auto) 0.03 H 0.03 H (0.00-0.02) K/uL Sodium (136-145) mmol/L Potassium (3.5-5.1) mmol/L Chloride (98-107) mmol/L Carbon Dioxide (21-32) mmol/L Anion Gap (3-11) BUN (6-23) mg/dl Creatinine (0.6-1.2) mg/dl Est Cr Clr Drug Dosing ml/min Est GFR ( Amer) ml/min Est GFR (Non-Af Amer) ml/min BUN/Creatinine Ratio (10-20) Glucose (70-99(Fasting)) mg/dl Estimat Average Glucose Hemoglobin A1c Calcium (8.5-10.1) mg/dl Magnesium 2.3 (1.7-2.4) mg/dl Total Bilirubin 0.5 (0.2-1.0) mg/dl Direct Bilirubin 0.1 (0-0.2) mg/dl AST 14 (13-39) U/L ALT 10 (7-52) U/L Alkaline Phosphatase 65 (34-104) U/L Troponin I High Sens (0-14) pg/ml Total Protein 6.1 (6.0-8.3) gm/dl Albumin 3.5 (3.4-5.0) gm/dl Triglycerides (0-150) mg/dl Cholesterol (0-200) mg/dl LDL Cholesterol, Calc mg/dl VLDL Cholesterol, Calc (0-30) mg/dl HDL Cholesterol mg/dl Cholesterol/HDL Ratio (0-5) 10/28/22 10/28/22 10/28/22 Range/Units 22:51 22:51 22:51 WBC (4.8-10.8) K/ul RBC (3.93-5.22) M/uL Hgb (12.0-16.0) g/dl Hct (34.1-44.9) % MCV (80.0-100.0) fL MCH (25.0-34.0) pg MCHC (32.0-36.0) g/dL RDW Std Deviation (36.4-46.3) fL RDW Coeff of Robin (11.5-14.5) % Plt Count (130-400) K/uL MPV (9.4-12.3) fL Immature Gran % (Auto) % Neut % (Auto) % Lymph % (Auto) % [place] % (Auto) % Eos % (Auto) % Baso % (Auto) % Neut # (Auto) (1.4-6.5) K/uL Lymph # (Auto) (1.2-3.4) K/uL [place] # (Auto) (0.24-0.82) K/uL Eos # (Auto) (0-0.50) K/uL Baso # (Auto) (0-0.2) K/uL Immature Gran # (Auto) (0.00-0.02) K/uL Sodium 142 (136-145) mmol/L Potassium 3.6 (3.5-5.1) mmol/L Chloride 111 H (98-107) mmol/L Carbon Dioxide 26 (21-32) mmol/L Anion Gap 5 (3-11) BUN 13 (6-23) mg/dl Creatinine 0.52 L (0.6-1.2) mg/dl Est Cr Clr Drug Dosing 80.3 ml/min Est GFR ( Amer) 103.1 ml/min Est GFR (Non-Af Amer) 89.0 ml/min BUN/Creatinine Ratio 25.0 H (10-20) Glucose 100 H (70-99(Fasting)) mg/dl Estimat Average Glucose Pending Hemoglobin A1c Pending Calcium 8.2 L (8.5-10.1) mg/dl Magnesium 2.3 (1.7-2.4) mg/dl Total Bilirubin 0.5 (0.2-1.0) mg/dl Direct Bilirubin 0.1 (0-0.2) mg/dl AST 15 (13-39) U/L ALT 10 (7-52) U/L Alkaline Phosphatase 65 (34-104) U/L Troponin I High Sens 6.6 (0-14) pg/ml Total Protein 6.1 (6.0-8.3) gm/dl Albumin 3.6 (3.4-5.0) gm/dl Triglycerides 100 (0-150) mg/dl Cholesterol 191 (0-200) mg/dl LDL Cholesterol, Calc 119 mg/dl VLDL Cholesterol, Calc 20 (0-30) mg/dl HDL Cholesterol 52 mg/dl Cholesterol/HDL Ratio 3.7 (0-5) Medications Administered Current Inpatient Medications Aspirin (Aspirin 81 Mg Ectab) 81 mg PO QAM [facility] Stop: 11/28/22 08:59 Atorvastatin Calcium (Atorvastatin 20 Mg Tab) 60 mg PO QPM [facility] Stop: 11/27/22 20:59 Last Admin: 10/28/22 21:20 Dose: 60 mg Baclofen (Baclofen 10 Mg Tab) 5 mg PO TID [facility] Stop: 11/27/22 13:59 Last Admin: 10/28/22 21:20 Dose: 5 mg Gabapentin (Gabapentin 100 Mg Cap) 100 mg PO TID [facility] Stop: 11/27/22 13:59 Last Admin: 10/28/22 21:20 Dose: 100 mg Sodium Chloride (Nss 1000ml) 1,000 mls @ 75 mls/hr IV .[id number] [facility] Stop: 10/29/22 11:35 Last Admin: 10/29/22 07:01 Dose: Not Given Miscellaneous Information (Pharmacist Discharge Med Rec Consult) 1 each N/A UD PRN PRN Reason: Consult Stop: 11/27/22 00:43
[2022-10-29] MEDS: ASPIRIN 81 MG ECTAB PO SCH (08:44)
[2022-10-29] MEDS: GABAPENTIN 100 MG CAP PO SCH ×3 (08:44→19:38)
[2022-10-29] MEDS: BACLOFEN 10 MG TAB PO SCH ×3 (08:45→19:38)
--- NOTE | 2022-10-29 14:11 | Neurology Progress Note ---
Date of Service October 29, 2022 Assessment & Plan (1) Acute CVA (cerebrovascular accident): Plan: Left subcortical stroke with right-sided hemiparesis. Tolerated thrombolysis well, unclear if there was benefit though. Continue aspirin and statin. Avoid lowering patient's blood pressure if at all possible. Echo with bubble study showing no significant abnormality. Patient will need 3 weeks outpatient cardiac rhythm monitoring to rule out occult atrial dysrhythmia. Intermittent jerks of the right leg have stopped on combination low-dose Klonopin with Neurontin. She probably does not need these medications long- term. Continue PT, OT, ST. Rehab eval. Admission and Anticipated Discharge Date Admission Date: October 27, 2022 Subjective Patient feeling okay, no headache. Right side seems about the same to her. No trouble swallowing. Jerking movements of the right leg have stopped. Review of Systems Review of Systems: As above no change. Physical Exam Physical Exam: Awake, alert, attentive. Speech is faster and more clear today. No paraphasic errors. No definite facial asymmetry. Still with noticeable right arm and leg weakness, seems about the same as yesterday, somewhat worse in the arm. She can only pinch very weakly using the fingers of the right hand. Can barely lift right heel off the bed. Can wiggle toes. Can roll right leg in and out of bed. Moderate power in right arm flexion and extension. Left side strong. No adventitious movements seen today. Results & Data ([facility]) Vital Signs (Past 12 Hours) Vital Signs Temp Pulse Resp BP Pulse Ox O2 Del Method 10/29/22 08:00 Room Air 10/29/22 08:00 58 L 15 95 Room Air 10/29/22 08:00 160/65 H 10/29/22 08:00 36.9 C 10/29/22 08:24 57 L 10/29/22 07:00 57 L 17 79 L 10/29/22 06:00 56 L 14 93 10/29/22 05:00 53 L 16 93 10/29/22 04:00 57 L 19 95 10/29/22 04:00 140/51 L 10/29/22 03:00 56 L 15 94
[2022-10-29] MEDS: ATORVASTATIN 20 MG TAB PO SCH (19:38)
[2022-10-30 06:24] LABS: Basophils # (auto) 0.05 K/uL (0-0.2); Basophils % (auto) 0.6 %; Eosinophils # (auto) 0.11 K/uL (0-0.50); Eosinophils % (auto) 1.2 %; Hematocrit (blood only) 37.2 % (34.1-44.9); Hemoglobin 12.4 g/dl (12.0-16.0); Immature Granulocytes # (auto) 0.03 K/uL (0.00-0.02); Immature Granulocytes % (auto) 0.3 %; Lymphocytes # (auto) 2.17 K/uL (1.2-3.4); Lymphocytes % (auto) 24.1 %; Mean Corpuscular Hemoglobin 30.6 pg (25.0-34.0); Mean Corpuscular Hgb Conc 33.3 g/dL (32.0-36.0); Mean Corpuscular Volume 91.9 fL (80.0-100.0); Mean Platelet Volume 10.5 fL (9.4-12.3); Monocytes # (auto) 0.82 K/uL (0.24-0.82); Monocytes % (auto) 9.1 %; Neutrophils # (auto) 5.84 K/uL (1.4-6.5); Neutrophils % (auto) 64.7 %; Platelet Count 241 K/uL (130-400); RDW Coefficient of Variation 13.7 % (11.5-14.5); RDW Standard Deviation 46.6 fL (36.4-46.3); Red Blood Count 4.05 M/uL (3.93-5.22); White Blood Count 9.02 K/ul (4.8-10.8)
[2022-10-30 06:44] LABS: Albumin Level 3.5 gm/dl (3.4-5.0); BUN Creatinine Ratio 41.5 (10-20); Bilirubin Direct 0.1 mg/dl (0-0.2); Bilirubin,Total 0.5 mg/dl (0.2-1.0); Calcium 8.3 mg/dl (8.5-10.1); Creatinine Clr Calc Pharmacy 78.4 ml/min; Est GFR (African American) 102.5 ml/min; Est GFR (Non-African American) 88.4 ml/min; Magnesium 2.2 mg/dl (1.7-2.4); Phosphorus 3.6 mg/dl (2.5-4.9); Potassium 3.6 mmol/L (3.5-5.1)
--- NOTE | 2022-10-30 07:34 | Hospitalist Progress Note ---
Date of Service October 30, 2022 Assessment & Plan (1) Acute CVA (cerebrovascular accident): (2) Right sided weakness: Plan: An 82-year-old female who presents with acute cerebrovascular accident. 1. Acute cerebrovascular accident with right-sided weakness, status post tnk Currently patient is unable to move her right upper extremity or right lower extremity. Says previously she was able to move somewhat, then worsened again. Repeat stat CT head done which was unchanged. Passed swallow evaluation in the ER, alert and oriented. Repeat CT after 24 hours post-TNK - done , No evidence of hemorrhagic transformation of previously noted left putamen infarct. Closely monitored in the ICU now downgraded Permissive hypertension. 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 Echocardiogram -normal LV wall thickness. LV wall motion is normal. LVEF 55 to 60%. Grade 1 diastolic dysfunction. Interatrial septum is intact with no evidence for an atrial septal defect as assessed with administration of agitated saline contrast. PT, OT evaluation. Started statin in the ER. Stroke neurologist, Dr. Gardner - contacted on admission Neurology consulted inpt and following - pt continues on ASA, and lipitor; also started on baclofen and gabapentin Patient will need 3 weeks outpatient cardiac rhythm monitoring to rule out occult atrial dysrhythmia. Intermittent jerks of the right leg have stopped on combination low-dose Klonopin with Neurontin. She probably does not need these medications long-term 2. Hyperlipidemia, not on any medication.lipid profile - LDL 119. Started on statin. 3. Deep venous thrombosis prophylaxis: SCDs. DISPOSITION: med/tele Code: full code. PT, OT prior to discharge - need rehab/snf Admission and Anticipated Discharge Date Admission Date: October 27, 2022 Subjective Patient seen in follow-up of CVA Currently sitting up in chair, in no acute distress, family at the bedside Today she is moving her right lower extremity, while sitting in a chair. Moves right lower extremity little better from yesterday but not able to lift her arm. Denies any fevers chills chest pain shortness of breath. Denies any abdominal pain. Review of Systems Review of Systems: All systems reviewed & are unremarkable except as noted in Subjective Physical Exam Physical Exam: GENERAL: The patient is alert and oriented, in NAD HEENT: Pupils equal, round and reactive to light. Mild right facial droop. Oral mucosa moist. NECK: No JVD or neck masses seen. CARDIOVASCULAR: S1 and S2 heard. Regular rate and rhythm. No murmur, no gallop. RESPIRATORY: Normal AP diameter. No accessory muscle use. No wheezing or crackles. ABDOMEN: Soft, bowel sounds present, nontender, no distention. NEURO: Alert and oriented x3. Mild right facial droop. She is now moving her right lower extremity, while sitting in the chair. Some movement improvement in the right upper extremity as well, however she is unable to lift her arm. Decreased sensation in RUE and RLE. EXTREMITIES: No edema, no erythema. Results & Data Results & Data ([facility]) Vital Signs (Past 12 Hours) Vital Signs Temp Pulse Resp BP Pulse Ox O2 Del Method O2 Flow Rate 10/30/22 04:00 36.9 C 53 L 16 168/70 H 94 Nasal Cannula 2 10/30/22 00:00 37 C 53 L 18 178/90 H 95 Room Air 10/29/22 20:00 37 C 62 20 168/72 H 95 Room Air 10/29/22 20:00 Room Air Laboratory Results 10/30/22 10/30/22 Range/Units 05:37 05:37 WBC 9.02 (4.8-10.8) K/ul RBC 4.05 (3.93-5.22) M/uL Hgb 12.4 (12.0-16.0) g/dl Hct 37.2 (34.1-44.9) % MCV 91.9 (80.0-100.0) fL MCH 30.6 (25.0-34.0) pg MCHC 33.3 (32.0-36.0) g/dL RDW Std Deviation 46.6 H (36.4-46.3) fL RDW Coeff of Robin 13.7 (11.5-14.5) % Plt Count 241 (130-400) K/uL MPV 10.5 (9.4-12.3) fL Immature Gran % (Auto) 0.3 % Neut % (Auto) 64.7 % Lymph % (Auto) 24.1 % [place] % (Auto) 9.1 % Eos % (Auto) 1.2 % Baso % (Auto) 0.6 % Neut # (Auto) 5.84 (1.4-6.5) K/uL Lymph # (Auto) 2.17 (1.2-3.4) K/uL [place] # (Auto) 0.82 (0.24-0.82) K/uL Eos # (Auto) 0.11 (0-0.50) K/uL Baso # (Auto) 0.05 (0-0.2) K/uL Immature Gran # (Auto) 0.03 H (0.00-0.02) K/uL Sodium 141 (136-145) mmol/L Potassium 3.6 (3.5-5.1) mmol/L Chloride 107 (98-107) mmol/L Carbon Dioxide 29 (21-32) mmol/L Anion Gap 5 (3-11) BUN 22 (6-23) mg/dl Creatinine 0.53 L (0.6-1.2) mg/dl Est Cr Clr Drug Dosing 78.4 ml/min Est GFR ( Amer) 102.5 ml/min Est GFR (Non-Af Amer) 88.4 ml/min BUN/Creatinine Ratio 41.5 H (10-20) Glucose 93 (70-99(Fasting)) mg/dl Calcium 8.3 L (8.5-10.1) mg/dl Phosphorus 3.6 (2.5-4.9) mg/dl Magnesium 2.2 (1.7-2.4) mg/dl Total Bilirubin 0.5 (0.2-1.0) mg/dl Direct Bilirubin 0.1 (0-0.2) mg/dl AST 13 (13-39) U/L ALT 8 (7-52) U/L Alkaline Phosphatase 64 (34-104) U/L Total Protein 6.0 (6.0-8.3) gm/dl Albumin 3.5 (3.4-5.0) gm/dl Medications Administered Current Inpatient Medications Aspirin (Aspirin 81 Mg Ectab) 81 mg PO QAM [facility] Stop: 11/28/22 08:59 Last Admin: 10/29/22 08:44 Dose: 81 mg Atorvastatin Calcium (Atorvastatin 20 Mg Tab) 60 mg PO QPM [facility] Stop: 11/27/22 20:59 Last Admin: 10/29/22 19:38 Dose: 60 mg Baclofen (Baclofen 10 Mg Tab) 5 mg PO TID [facility] Stop: 11/27/22 13:59 Last Admin: 10/29/22 19:38 Dose: 5 mg Gabapentin (Gabapentin 100 Mg Cap) 100 mg PO TID [facility] Stop: 11/27/22 13:59 Last Admin: 10/29/22 19:38 Dose: 100 mg Miscellaneous Information (Pharmacist Discharge Med Rec Consult) 1 each N/A UD PRN PRN Reason: Consult Stop: 11/27/22 00:43
--- NOTE | 2022-10-30 07:58 | Pharmacy Report ---
- Date of Service October 30, 2022 - Pharmacy CVA/TIA Medication Review Medications to Prevent Stroke handout has been added to the patients discharge packet. Antiplatelet(s) * Aspirin 81mg daily Cholesterol * High intensity statin: atorvastatin 60 mg daily DVT Prophylaxis * SCD knee & Thigh Therapeutic Anticoagulation * No history of Afib/Aflutter noted Type 2 Diabetes * Patient does not have T2DM, A1c pending, POC glucose at goal without treatment
[2022-10-30] MEDS: BACLOFEN 10 MG TAB PO SCH ×3 (08:45→19:47)
[2022-10-30] MEDS: ASPIRIN 81 MG ECTAB PO SCH (08:45)
[2022-10-30] MEDS: GABAPENTIN 100 MG CAP PO SCH ×3 (08:45→19:47)
[2022-10-30 09:45] LABS: Estimated Average Glucose 123 mg/dl; Hemoglobin A1C 5.9 % (4.5-5.6)
[2022-10-30] MEDS: ATORVASTATIN 20 MG TAB PO SCH (19:46)
[2022-10-31 06:45] LABS: BUN Creatinine Ratio 48.1 (10-20); Calcium 8.1 mg/dl (8.5-10.1); Creatinine Clr Calc Pharmacy 82.7 ml/min; Est GFR (African American) 103.1 ml/min; Potassium 3.8 mmol/L (3.5-5.1)
[2022-10-31] MEDS: GABAPENTIN 100 MG CAP PO SCH ×3 (09:07→17:44)
[2022-10-31] MEDS: BACLOFEN 10 MG TAB PO SCH ×3 (09:07→17:44)
[2022-10-31] MEDS: ASPIRIN 81 MG ECTAB PO SCH (09:07)
--- NOTE | 2022-10-31 10:51 | Hospitalist Progress Note ---
Date of Service October 31, 2022 Assessment & Plan (1) Acute CVA (cerebrovascular accident): (2) Right sided weakness: Plan: An 82-year-old female who presents with acute cerebrovascular accident. 1. Acute cerebrovascular accident with right-sided weakness, status post tnk Currently patient is unable to move her right upper extremity or right lower extremity. Says previously she was able to move somewhat, then worsened again. Repeat stat CT head done which was unchanged. Passed swallow evaluation in the ER, alert and oriented. Repeat CT after 24 hours post-TNK - done , No evidence of hemorrhagic transformation of previously noted left putamen infarct. Closely monitored in the ICU now downgraded Permissive hypertension. 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 Echocardiogram -normal LV wall thickness. LV wall motion is normal. LVEF 55 to 60%. Grade 1 diastolic dysfunction. Interatrial septum is intact with no evidence for an atrial septal defect as assessed with administration of agitated saline contrast. PT, OT evaluation. Started statin in the ER. Stroke neurologist, Dr. Gardner - contacted on admission Neurology consulted inpt and following - pt continues on ASA, and lipitor; also started on baclofen and gabapentin Patient will need 3 weeks outpatient cardiac rhythm monitoring to rule out occult atrial dysrhythmia. Intermittent jerks of the right leg have stopped on combination low-dose Klonopin with Neurontin. She probably does not need these medications long-term 2. Hyperlipidemia, not on any medication.lipid profile - LDL 119. Started on statin. 3. Deep venous thrombosis prophylaxis: SCDs. DISPOSITION: [facility] Code: full code. Admission and Anticipated Discharge Date Admission Date: October 28, 2022 Subjective Patient seen in follow-up of CVA Currently sitting up in chair, in no acute distress, family at the bedside She is moving her right lower extremity, while sitting in a chair. She is able to lift her right lower extremity as well. Moves right lower extremity little better from yesterday, and she is able to lift her right arm somewhat. Denies any fevers chills chest pain shortness of breath. Denies any abdominal pain. Review of Systems Review of Systems: All systems reviewed & are unremarkable except as noted in Subjective Physical Exam Physical Exam: GENERAL: The patient is alert and oriented, in NAD HEENT: Pupils equal, round and reactive to light. Mild right facial droop. Oral mucosa moist. NECK: No JVD or neck masses seen. CARDIOVASCULAR: S1 and S2 heard. Regular rate and rhythm. No murmur, no gallop. RESPIRATORY: Normal AP diameter. No accessory muscle use. No wheezing or crackles. ABDOMEN: Soft, bowel sounds present, nontender, no distention. NEURO: Alert and oriented x3. Mild right facial droop. She is now moving her right lower extremity, while sitting in the chair. She can also lift her right lower extremity somewhat. Some movement improvement in the right upper extremity as well, she is also able to lift her right arm a little bit. Decreased sensation in RUE and RLE. EXTREMITIES: No edema, no erythema. Results & Data Results & Data ([facility]) Vital Signs (Past 12 Hours) Vital Signs Temp Pulse Resp BP BP Pulse Ox O2 Del Method 10/31/22 07:03 36.9 C 55 L 18 148/62 H 94 Room Air 10/31/22 03:44 37.0 C 61 18 129/72 92 Nasal Cannula 10/30/22 23:31 36.9 C 63 16 128/59 L 92 Room Air Laboratory Results 10/31/22 Range/Units 06:11 Sodium 140 (136-145) mmol/L Potassium 3.8 (3.5-5.1) mmol/L Chloride 106 (98-107) mmol/L Carbon Dioxide 28 (21-32) mmol/L Anion Gap 6 (3-11) BUN 25 H (6-23) mg/dl Creatinine 0.52 L (0.6-1.2) mg/dl Est Cr Clr Drug Dosing 82.7 ml/min Est GFR ( Amer) 103.1 ml/min Est GFR (Non-Af Amer) 89.0 ml/min BUN/Creatinine Ratio 48.1 H (10-20) Glucose 110 H (70-99(Fasting)) mg/dl Calcium 8.1 L (8.5-10.1) mg/dl Medications Administered 10/31/22 Range/Units 06:11 Sodium 140 (136-145) mmol/L Potassium 3.8 (3.5-5.1) mmol/L Chloride 106 (98-107) mmol/L Carbon Dioxide 28 (21-32) mmol/L Anion Gap 6 (3-11) BUN 25 H (6-23) mg/dl Creatinine 0.52 L (0.6-1.2) mg/dl Est Cr Clr Drug Dosing 82.7 ml/min Est GFR ( Amer) 103.1 ml/min Est GFR (Non-Af Amer) 89.0 ml/min BUN/Creatinine Ratio 48.1 H (10-20) Glucose 110 H (70-99(Fasting)) mg/dl Calcium 8.1 L (8.5-10.1) mg/dl
[2022-10-31] MEDS: ATORVASTATIN 20 MG TAB PO SCH (17:44)
--- NOTE | 2022-11-01 09:18 | Discharge Summary ---
Date of Service October 31, 2022 Admission HPI Per Admitting Provider This is an 82-year-old female with past medical history significant for hyperlipidemia, not on any medications, history of osteoporosis , vitamin D deficiency, presents with acute CVA. The patient was sitting on the couch. Around 7;30pm she does not feel anything on the right side and she fell down and she could not move. Her speech is somewhat compromised, but she was able to call her [id number]. Daughter in law called EMS and brought in here. Prior to that, she seems to be doing okay. She was stroke alert and she was 2- 1/2 hours since the stroke and she was given TNK. Currently, resting comfortab ly, hemodynamically stable, able to give her history. Speech is somewhat pressured, but speaking okay, could not move her right upper extremity, minimal movement of the right lower extremity, but she has a lot of spasms in the right leg and asking for help with her spasms.. Denies any headache. No blurred vision or double visions, no runny nose, no cough, no fevers. She passed swallow evaluation in the ER. Denies any chest pain, no shortness of breath, no nausea, no abdominal pain. Normal bowel and bladder movements. Denies any blood in stools or black stools. No swelling in the legs, no rash. Admission Exam Per Admitting Provider GENERAL: The patient is alert and oriented, seems to have mild facial droop on the right side. VITAL SIGNS: Temperature afebrile, pulse 61, respiratory rate 16, blood pressure 162/92, oxygen 97% on 2 liters. HEENT: Pupils equal, round and reactive to light. Mild right facial droop. Oral mucosa moist. Tongue is midline. NECK: No JVD or neck masses seen. CARDIOVASCULAR: S1 and S2 heard. Regular rate and rhythm. No murmur, no gallop. RESPIRATORY SYSTEM: Normal AP diameter. No accessory muscle use. No wheezing or crackles. ABDOMEN: Soft, bowel sounds present, nontender, no distention. CENTRAL NERVOUS SYSTEM: Alert and oriented x3. Mild right facial droop. Speech is pressured, cannot move her right upper extremity, minimal movement of left lower extremity. No f sensation in the right side, power 5/5 in left extremities, sensation intact in left extremities. EXTREMITIES: No edema, no erythema. Principal Diagnosis Acute CVA Discharge Exam GENERAL: The patient is alert and oriented, in NAD HEENT: Pupils equal, round and reactive to light. Mild right facial droop. Oral mucosa moist. NECK: No JVD or neck masses seen. CARDIOVASCULAR: S1 and S2 heard. Regular rate and rhythm. No murmur, no gallop. RESPIRATORY: Normal AP diameter. No accessory muscle use. No wheezing or crackles. ABDOMEN: Soft, bowel sounds present, nontender, no distention. NEURO: Alert and oriented x3. Mild right facial droop. She is now moving her right lower extremity, while sitting in the chair. She can also lift her right lower extremity somewhat. Some movement improvement in the right upper extremity as well, she is also able to lift her right arm a little bit. Decreased sensation in RUE and RLE. EXTREMITIES: No edema, no erythema. Discharge Data Allergies Allergy/AdvReac Type Severity Reaction Status Date / Time adhesive tape Allergy Intermediate ITCHY RED Verified 10/27/22 22:24 RASH Consultations 10/27/22 22:46 ED Decision to Admit Stat 10/28/22 00:31 Consult [employer] Routine 10/28/22 08:00 Consult Neurology Routine Ordered Studies 10/27/22 21:49 CT angio head w con Stat CT angio neck with con Stat CT head/brain wo con Stat FINDINGS: CT head: Areas of decreased attenuation are present in the periventricular and subcortical white matter bilaterally consistent with small vessel ischemic disease. Generalized cerebral atrophy with commensurate enlargement of the ventricles, sulci, and cisterns is also present. There is no acute intracranial hemorrhage or evidence of acute territorial infarction. No shift of the midline structures, mass effect, or extra-axial abnormalities are shown. Atherosclerotic calcifications are present in the intracranial segments of the internal carotid arteries. Small thyroid nodules are seen which do not require follow-up by ACR criteria. CTA Neck: A 3 vessel aortic arch is shown. There is no significant atherosclerotic plaque in the aortic arch or the origins of the innominate, left common carotid, and left subclavian arteries. There is mild calcified atherosclerotic plaque at the bifurcation of the right common carotid artery without hemodynamically significant flow stenosis. There is no dissection present. Retropharyngeal course of the right internal carotid artery is seen. The vertebral arteries are codominant. CTA Head: The anterior and posterior cerebral circulations are patent. No hemodynamically significant stenosis, aneurysm, dissection, or arteriovenous malformation is shown. IMPRESSION: 1. No acute intracranial hemorrhage, evidence of acute territorial infarction, or other acute intracranial disease process. 2. No occlusion, hemodynamically significant stenosis, or dissection in the major cervical arteries. 3. No occlusion, hemodynamically significant stenosis, aneurysm, dissection, or arteriovenous malformation in the major intracranial arteries. 10/28/22 00:44 MR brain wo/w con Routine FINDINGS: Restricted diffusion is seen in the left posterior putamen. Mild associated white matter edema is seen. Chronic age-related changes are seen in the white matter compatible with microvascular ischemic change. Ex vacuo ventriculomegaly and sulcal enlargement is noted compatible with diffuse encephalomalacia. No mass or abnormal enhancement is seen. Minimal mass effect is seen upon the left lateral ventricle and there is no midline shift. There is no evidence of acute intraparenchymal hemorrhage. No extra axial fluid collections are seen. The corpus callosum, pituitary gland, and cerebellar tonsils appear grossly unremarkable. Flow voids of the major intracranial arterial vessels are identified. The imaged portions of the paranasal sinuses, mastoid air cells, and orbits are unremarkable. 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 10/28/22 07:56 CT head/brain wo con Stat Findings: The paranasal sinuses and mastoid air cells are clear. The calvarium and skull base are intact. There is no mass, hematoma, midline shift, acute infarct. White matter hypodensity is nonspecific but suggestive of microvascular ischemic change. The ventricles and sulci demonstrate mild age-related involutional changes. Impression: No acute intracranial abnormality. 10/28/22 21:30 CT head/brain wo con Stat Findings: Redemonstration of a hypodensity in the left putamen which is somewhat more conspicuous on today's exam. There is no evidence of hemorrhage. Imaged portions of the paranasal sinuses and mastoid air cells are clear. The orbits appear normal. There are no acute fractures of the calvaria or scalp swelling. Impression: No evidence of hemorrhagic transformation of previously noted left putamen infarct. Hospital Course (1) Acute CVA (cerebrovascular accident): (2) Right sided weakness: An 82-year-old female who presents with acute cerebrovascular accident. 1. Acute cerebrovascular accident with right-sided weakness, status post tnk Currently patient is unable to move her right upper extremity or right lower extremity. Says previously she was able to move somewhat, then worsened again. Repeat stat CT head done which was unchanged. Passed swallow evaluation in the ER, alert and oriented. Repeat CT after 24 hours post-TNK - done , No evidence of hemorrhagic transformation of previously noted left putamen infarct. Closely monitored in the ICU now downgraded Permissive hypertension. 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 Echocardiogram -normal LV wall thickness. LV wall motion is normal. LVEF 55 to 60%. Grade 1 diastolic dysfunction. Interatrial septum is intact with no evidence for an atrial septal defect as assessed with administration of agitated saline contrast. PT, OT evaluation. Started statin in the ER. Stroke neurologist, Dr. Gardner - contacted on admission Neurology consulted inpt and following - pt continues on ASA, and lipitor; also started on baclofen and gabapentin Patient will need 3 weeks outpatient cardiac rhythm monitoring to rule out occult atrial dysrhythmia. Intermittent jerks of the right leg have stopped on combination low-dose Klonopin with Neurontin. She probably does not need these medications long-term 2. Hyperlipidemia, not on any medication.lipid profile - LDL 119. Started on statin. Total Time Total Time Spent Total Time Spent (In Minutes): 40 Discharge Plan Discharge Items Patient Disposition: Transfer Inpatient Rehab Fac Reason For Visit: ACUTE CVA Discharge Diagnosis: Acute CVA Condition on Discharge: Serious Activity: Per Instructions section Non-emergency contact: Primary Care Provider and Neurologist Call non-emergency contact if: you have any medication questions and your symptoms worsen Follow-up/Referrals: Brian Flynn DO [Primary Care Provider] - Diet: Heart Healthy Addtl Attending Provider Instructions: Follow-up with your primary care doctor within 1 to 2 weeks. Take aspirin and Lipitor every day. Take gabapentin and baclofen for next few days. You will need outpatient heart rate monitor study in few weeks. Follow-up with neurology as well in a few weeks. Pending Studies at Discharge: No Stand-Alone Forms: My my[employer], Medications to Prevent Stroke Skilled Items Patient informed of condition?: Yes DNR: No Discharge Level of Care: Acute rehab Communicable Disease: No Discharge Prognosis: Stable Lines: None Urinary Catheter: No Medications and DC Order Prescriptions: New aspirin 81 mg Tablet,Delayed Release (Dr/Ec) 81 mg PO QAM Qty: 30 0RF atorvastatin 20 mg Tablet 60 mg PO QPM Qty: 30 0RF gabapentin 100 mg Capsule 100 mg PO TID 5 Days Qty: 15 0RF baclofen 10 mg Tablet 5 mg PO TID 5 Days Qty: 8 0RF Continued sodium chloride [Aarti 128] 5 % Drops 1 drp OPHTHALMIC (EYE) BID PRN (Reason: Eye Irritation) Discharge Orders: Discharge Order (Routine); Ordered 10/31/22 Ordered By: Rayray Palm Admission Data Admit Date/Time: 10/28/22 00:02 Attending Provider: Rayray Palm Admit Provider: Yo Vallecillo Primary Care Provider: Brian Flynn Other Providers: Jose Bravo at [place] ; [facility] ; Yo Vallecillo ; Perla Mcintosh ; Alton Flores ; Axel Harrell ; Camilla Moulton ; Liz Lui ; Shawn Freeman ; Liz Osman ; Nir Finley ; Pratima Pradhan ; Florin Smith ; Rosa M Kolb ; Darlene Schulz ; Shawn Villanueva ; Osman Pak Other Interventions: Discharge Summary Assessment (RN) Last Done: 10/31/22 15:52
== END 2022-10-31 18:09 | DRG 62 ==
LOC: ED 21:55 → 1E 23:56 → 4W 10-29 18:48
DX: R73.9 Hyperglycemia, unspecified; Z91.048 Other nonmedicinal substance allergy status; Z20.822 Contact with and (suspected) exposure to COVID-19; R29.810 Facial weakness; M62.838 Other muscle spasm; I63.412 Cerebral infarction due to embolism of left middle cerebral artery; R03.0 Elevated blood-pressure reading, without diagnosis of hypertension; E78.5 Hyperlipidemia, unspecified; R29.708 NIHSS score 8; E55.9 Vitamin D deficiency, unspecified; G81.93 Hemiplegia, unspecified affecting right nondominant side; M81.0 Age-related osteoporosis without current pathological fracture; R47.81 Slurred speech